=== PATIENT | male | born 1965 | race Caucasian/White ===

== ENCOUNTER 2017-03-20 08:35 | Inpatient (IN) ==
[~2017-03-20 08:35] MED LIST: STELARA PO SCH
--- NOTE | 2017-03-20 08:47 | Emergency Department Report ---
General Adult HPI - General Stated complaint: anxiety,over or under hydrated,chrones disease Time Seen by Provider: 03/20/17 08:47 Source: patient, family Mode of arrival: ambulatory Limitations: no limitations - History of Present Illness HPI narrative: Patient is a 51-year-old male history of Crohn's disease, history of hyponatremia history of anxiety. Patient presents the ER for evaluation of fluid status, anxiety. Patient yesterday went to an outside BBQ drank a few beers, felt weird so he went home and drank a large amount of water, return to the [facility] and drink a few more beers. Patient unable to sleep last night did attempt his home anxiety medications as well as 5 mg Ambien 2. Patient still unable to sleep, has been agitated and anxious all night feeling poorly so patient decided present today to the ER for evaluation. Patient with no complaints of pain, just restlessness. - Related Data Home Medications Medication Instructions Recorded Confirmed Zolpidem Tartrate 5 - 10 mg PO HS #0 09/24/15 03/20/17 ALPRAZolam [Alprazolam] 0.25 mg PO QIDPRN PRN #0 10/04/15 03/20/17 Calcium Carbonate [Calcium] 500 mg PO DAILY #0 04/22/16 03/20/17 Potassium Chloride 10 meq PO DAILY #0 04/22/16 03/20/17 Cholecalciferol [Vitamin D-3] 2 tab PO DAILY 03/20/17 03/20/17 Ferrous Sulfate [Iron] 325 mg PO DAILY 03/20/17 03/20/17 Magnesium Oxide [Magnesium] 500 mg PO DAILY 03/20/17 03/20/17 Ustekinumab [Stelara] 90 mg SQ Q72D 03/20/17 03/20/17 Allergies Allergy/AdvReac Type Severity Reaction Status Date / Time ondansetron Allergy Severe Verified 03/20/17 09:26 REPORTS ZOFRAN WAS BEING ADMINISTERED AND HE SEIZED amoxicillin trihydrate Allergy Severe DIFFICULTY Uncoded 03/20/17 08:45 BREATHING potassium clavulanate Allergy Severe DIFFICULTY Uncoded 03/20/17 08:45 BREATHING Review of Systems Constitutional: Denies: fever, chills, weakness ENT: Denies: ear pain, throat pain Cardiovascular: Denies: chest pain, palpitations Respiratory: Denies: cough, dyspnea Gastrointestinal: Denies: abdominal pain, nausea, vomiting Genitourinary: Denies: urgency, dysuria, frequency Neurological: Denies: headache, weakness, numbness, paresthesias Psychiatric: Reports: anxiety. Denies: depression, suicidal thoughts Endocrine: Denies: fatigue Hematological/Lymphatic: Denies: easy bleeding PFSH Patient Stated Medical History Seizures Yes Hypertension Yes Other GI Yes: CROHNS Depression Yes Surgical History: Colostomy with hemicolectomy - Social History Smoking status: Never smoker Substance use type: does not use Alcohol intake frequency: 0-2 drinks per day Physical Exam - Limitations Limitations: no limitations - Eye Eye exam: Present: PERRL, EOMI - ENT ENT exam: Present: mucous membranes moist - Chest Chest inspection: Present: symmetric chest wall rise. Absent: tenderness - Respiratory Respiratory exam: Present: normal lung sounds bilaterally. Absent: respiratory distress, wheezes - Cardiovascular Cardiovascular exam: Present: regular rate, normal rhythm, normal heart sounds - Abdominal Exam Abdominal exam: Present: soft, other (colostomy in left lower quadrant, no surrounding tenderness). Absent: distention, tenderness - Extremities Exam Extremities exam: Present: full ROM, normal capillary refill - Back Exam Back exam: Present: full ROM - Skin Skin exam: Present: warm - Neurological Exam Neurological exam: Present: alert, oriented X3 Course Vital Signs Temperature 98.3 F 03/20/17 08:37 Pulse Rate 91 03/20/17 08:37 Respiratory Rate 20 03/20/17 08:37 Blood Pressure 170/103 H 03/20/17 08:37 Pulse Oximetry 99 03/20/17 08:37 Temperature 98.3 F 03/20/17 08:37 Pulse Rate 80 03/20/17 09:40 Respiratory Rate 20 03/20/17 08:37 Blood Pressure 180/98 H 03/20/17 09:40 Pulse Oximetry 99 03/20/17 09:40 Medical Decision Making - [facility] Narrative Medical decision making narrative: Hyponatremia, hypokalemia, anxiety, alcohol intoxication, dehydration, acute kidney injury Patient hyponatremic sodium 119 potassium 3.1. Discussed case with hospitalist service they will admit him inpatient status - Lab Data Result diagrams: 03/20/17 08:58 03/20/17 08:58 Lab Results 03/20/17 03/20/17 Range/Units 08:58 08:58 WBC 15.0 H (4.5-11.0) T/MM3 RBC 4.24 L (4.50-5.90) M/MM3 Hgb 12.7 L (13.5-17.5) GM/DL Hct 35.7 L (41-53) % MCV 84.2 (80-100) UM3 MCH 30.0 (26-34) UUG MCHC 35.6 (31-37) GM/DL RDW Std Deviation 36.4 L (36.9-50.2) FL Plt Count 323 (130-400) T/MM3 MPV 8.2 L (9.4-12.4) UM3 Immature Gran % (Auto) 0.6 H (0.0-0.5) % Neut % (Auto) 79.4 H (33-66) % Lymph % (Auto) 10.5 L (23-45) % [place] % (Auto) 8.6 (0-9.0) % Eos % (Auto) 0.6 (0-4) % Baso % (Auto) 0.3 (0-2) % Neut # 11.9 H (1.8-7.7) T/MM3 Lymph # 1.6 (1-4.8) T/MM3 [place] # 1.3 H (0-0.8) T/MM3 Eos # 0.1 (0-0.5) T/MM3 Baso # 0.1 (0-0.2) T/MM3 Abs Immat Gran (auto) 0.09 H (0.00-0.03) T/MM3 Turbidity < 20 (0-20) Sodium 119 L* (134-144) MEQ/L Potassium 3.1 L (3.6-5) MEQ/L Chloride 81 L (98-107) MEQ/L Carbon Dioxide 24 (22-30) MEQ/L Anion Gap 14 (5-15) MEQ/L BUN 12.0 (9-20) MG/DL Creatinine 0.8 (0.8-1.5) MG/DL GFR Calculation 101 BUN/Creatinine Ratio 15 (6-26) RATIO Glucose 98 (75-110) MG/DL Calculated Osmolality 230 L (261-280) MOSM/KG Calcium 9.4 (8.4-10.2) MG/DL Total Bilirubin 0.90 (0.20-1.30) MG/DL Icterus Index < 2 (0-7) AST 48 (17-59) U/L ALT 48 (21-72) U/L Alkaline Phosphatase 89 (38-126) U/L Total Protein 6.7 (6.3-8.2) G/DL Albumin 4.1 (3.5-5.0) G/DL Globulin 2.6 (2.4-3.6) G/DL Albumin/Globulin Ratio 1.6 (1.1-2.2) RATIO Lipase 50 (23-300) U/L Specimen Hemolysis 30 H (0-25) Alcohol, Quantitative <10 (<10) MG/DL Disposition Clinical Impression: Hyponatremia with decreased serum osmolality Disposition: 02 To [facility] Acute Care Condition: Stable Prescriptions: No Action Calcium Carbonate [Calcium] 500 mg PO DAILY #0 Potassium Chloride 10 meq PO DAILY #0 Ferrous Sulfate [Iron] 325 mg PO DAILY Ustekinumab [Stelara] 90 mg SQ Q72D Zolpidem Tartrate 5 - 10 mg PO HS #0 ALPRAZolam [Alprazolam] 0.25 mg PO QIDPRN PRN #0 PRN Reason: ANXIETY Magnesium Oxide [Magnesium] 500 mg PO DAILY Cholecalciferol [Vitamin D-3] 2 tab PO DAILY Referrals: Han Knight MD [Family Provider] - Time of Disposition: 09:34 - Seen By: physician
[2017-03-20] MEDS ORDERED: SALINE FLUSH 10ml SYRINGE IVF PRN (08:51)
[2017-03-20] MEDS ORDERED: NS 1,000 ML IV ONE (08:52)
[2017-03-20] MEDS ORDERED: NS 1,000 ML IV SCH (10:00)
[2017-03-20] MEDS ORDERED: ALPRAZolam 0.25 MG TABLET PO PRN (10:14)
[2017-03-20] MEDS ORDERED: ACETAMINOPHEN 325 MG TABLET PO PRN (10:15)
[2017-03-20] MEDS ORDERED: ZOLPIDEM 10 MG TABLET PO PRN (10:15)
[2017-03-20] MEDS ORDERED: PROMETHAZINE 25 MG INJECTION IVP PRN (10:16)
--- NOTE | 2017-03-20 12:47 | History & Physical Report ---
<Yi Suarez - Last Filed: 03/20/17 13:32> History of Present Illness Date: 03/20/17 Chief complaint: hyponatremia, hypokalemia, anxiety HPI: Han Guerra is a 51 year old male who presented to [facility] emergency room on for evaluation of increased anxiety and restlessness. He has a known history of Crohns disease with colostomy following a hemicolectomy in 2006. He reports that last night he was at an outdoor BBQ where he admits to drinking about 3-4 beers. Around 7pm he started to not feel well so he went home and drank "a lot" of water. Around 2200 he returned to the green party and had a "few more beers" before returning home for the evening. He states that after returning home for the evening, he continued to feel very anxious and restless despite taking his home xanax and ambien. This morning, he continued to feel very anxious and restless and then began vomiting x 3. He admits to a previous history of electrolyte abnormalities and states that he is prone to hyponatremia and hypokalemia due to his hemicolectomy. He states that he recently completed a 10 course of levaquin for a "bad cold" but otherwise denies any fevers, chills, chest pain, shortness of breath, abdominal pain, diarrhea, constipation, dysuria, hematuria, dizziness or syncope. He presented to the ED for further evaluation and concern of dehydration. Upon arrival to the ED, vital signs revealed temperature 96.4, heart rate 90, blood pressure elevated at 180/98, respiratory rate 20 and pulse ox at 100% on room air. Labs were obtained and revealed leukocytosis with WBC 15.0, anemia with hemoglobin 12.7, platelets 323. CMP revealed significant hyponatremia with sodium 119, hypokalemia with potassium 3.1, BUN 12, SCr 0.8 and glucose 98. LFT were within normal limits and alcohol level was <10. While in the ED, he received ativan and IV fluids were initiated. Dr. Haider was contacted and Mr. Guerra as admitted into inpatient status for further evaluation, close cardiac monitoring and electrolyte, IV fluid resuscitation. His length of stay is expected to exceed more than 2 over nights. In addition to a history of Crohn' s disease, he has a past history significant for seizures following binge drinking in Nov. 2015 as well as hypertension, anxiety and depression. He follows with [facility], in [place]. He is seen in his room, following his admission, and is resting in bed, eating lunch. He is in no apparent distress and is alert and oriented x3. He does show signs of difficulty concentrating and repeatedly states "what was I saying " and then remembers after a brief period, to continue the conversation. Cardiac exam reveals regular rate and rhythm and lungs are clear to auscultation. Abdomen is soft, nontender with active bowel sounds and colostomy bag noted. No edema noted to lower extremities and SCDS in place bilaterally. 2+ pedal pulses with N/V intact. Review of Systems All systems: reviewed and no additional remarkable complaints except as stated - Constitutional Constitutional: Absent: chills, fatigue, fever(s), headache(s) - EENMT Eyes: Absent: change in vision, loss of vision, photophobia Mouth/Throat: Absent: dry mouth - Cardiovascular Cardiovascular: Present: palpitations. Absent: chest pain, syncope, dyspnea on exertion, edema Vascular: Absent: pedal edema, unilateral swelling - Respiratory Respiratory: Absent: cough, dyspnea, hemoptysis, dyspnea on exertion, wheezing, pain on inspiration - Gastrointestinal Gastrointestinal: Present: vomiting. Absent: abdominal pain, change in bowel habits, coffee ground emesis, constipation, diarrhea, melena, nausea - Genitourinary Genitourinary: Absent: difficulty urinating, dysuria - Integumentary/Breasts Integumentary: Absent: erythema, rash, jaundice - Neurological Neurological: Absent: dizziness, focal weakness, numbness, vertigo, weakness Neurological Comments: difficulty concentrating. - Psychiatric Psychiatric: Present: abnormal sleep pattern, anxiety, difficulty concentrating - Hematologic/Lymphatic Hematologic/Lymphatic: Absent: easy bleeding PFS Medical History Updates: 1. Crohn's disease. 2. Anemia, chronic. 3. Anxiety & Depression. 4. History of seizures. 5. History of electrolyte imbalance - hyponatremia, hypokalemia. 6. Insomnia. 7. Hypertension. 8. Hypercholesterolemia Surgical History: Colostomy with hemicolectomy Family History Updates: Father - alive, age 84, no known conditions. Mother - , age 66, breast cancer. Son - alive, age 13, health. - Social History Smoking status: Never smoker Substance use type: does not use Alcohol intake: current Alcohol intake frequency: a few times a week Last drink: hours (ago) (12) Housing: house Household members: spouse, children Does patient use chewing tobacco?: No Current residence: Apartment/Private Home Social history: GI - Dr. Knight. Medications Home Medications Medication Instructions Recorded Confirmed Type Zolpidem Tartrate 5 - 10 mg PO HS #0 09/24/15 03/20/17 History ALPRAZolam [Alprazolam] 0.25 mg PO QIDPRN PRN #0 10/04/15 03/20/17 History Calcium Carbonate [Calcium] 500 mg PO DAILY #0 04/22/16 03/20/17 History Potassium Chloride 10 meq PO DAILY #0 04/22/16 03/20/17 History Cholecalciferol [Vitamin D-3] 2 tab PO DAILY 03/20/17 03/20/17 History Ferrous Sulfate [Iron] 325 mg PO DAILY 03/20/17 03/20/17 History Magnesium Oxide [Magnesium] 500 mg PO DAILY 03/20/17 03/20/17 History Ustekinumab [Stelara] 90 mg SQ Q72D 03/20/17 03/20/17 History Allergies Allergy/AdvReac Type Severity Reaction Status Date / Time ondansetron Allergy Severe Verified 03/20/17 09:26 REPORTS ZOFRAN WAS BEING ADMINISTERED AND HE SEIZED amoxicillin trihydrate Allergy Severe DIFFICULTY Uncoded 03/20/17 08:45 BREATHING potassium clavulanate Allergy Severe DIFFICULTY Uncoded 03/20/17 08:45 BREATHING Exam Vital Signs: Temp Pulse Resp BP Pulse Ox 96.4 F L 74 16 158/94 H 97 03/20/17 10:08 03/20/17 10:08 03/20/17 10:08 03/20/17 10:08 03/20/17 10:08 Telemetry Rhythm: Sinus Rhythm Height: 5 ft 9.5 in Weight: 180 lb 12.465 oz Body Mass Index: 26.3 - Constitutional Present: no acute distress, well nourished, well developed, cooperative Comments: anxious, restless - Routine HEENT Exam Head: Present: normocephalic, atraumatic Eye: Absent: scleral injection ENT: Present: mucous membranes moist - Routine Neck Exam Present: supple, full ROM, trachea midline. Absent: tenderness - Routine Chest/Breast/Axilla Exam Chest wall: Absent: tenderness - Routine Respiratory Exam Present: CTA bilaterally. Absent: accessory muscle use, respiratory distress, rhonchi, stridor, wheezes, crackles - Routine Cardiovascular Exam Present: RRR, S1, S2 - Routine Abdominal Exam Present: soft, normoactive bowel sounds, non tender. Absent: rebound, guarding Comments: colostomy bag noted. - Routine Extremities Exam Present: no edema, non tender, full ROM, pulses intact, normal capillary refill. Absent: calf tenderness - Routine Back/Spine/Pelvis Exam Back/Spine: Present: full ROM - Routine Skin Exam Present: intact, dry, warm. Absent: rash - Routine Neurological Exam Present: alert, oriented X3, moving all extremities, hearing grossly intact, normal speech - Routine Psychiatric Exam Present: cooperative, anxious Comments: difficulty concentrating Results - Labs CBC & Chem 7: 03/20/17 08:58 03/20/17 13:05 Labs: leukocytosis - WBC 15.0. anemia - Hgb 12.7. hyponatremia with hypoosmolality - soidium 119 and osmolality 230. hypokalemia - potassium 3.1. Assessment and Plan (1) SIRS (systemic inflammatory response syndrome) Current visit: Yes Status: Acute 03/20/17 13:12 present on admission as indicated by: leukocytosis (WBC 15.0), tachycardia (HR 90) and difficulty concentrating. (2) Hyponatremia with decreased serum osmolality Current visit: Yes Status: Acute 03/20/17 13:16 present on admission - sodium 119 and osmolality 230. (3) Hypokalemia Current visit: Yes Status: Acute 03/20/17 13:14 present on admission - potassium 3.1. (4) Anemia Current visit: Yes Status: Chronic 03/20/17 13:14 present on admission - hemoglobin 12.7. (5) Crohns disease Current visit: Yes Status: Chronic 03/20/17 13:14 s/p colostomy with hemicolectomy in 2006 secondary to bowel perforation during routine colonoscopy. (6) Anxiety and depression Current visit: Yes Status: Chronic (7) Insomnia Current visit: Yes Status: Chronic (8) History of seizures Current visit: Yes Status: Chronic (9) Hypertension Current visit: Yes Status: Chronic (10) Hypercholesteremia Current visit: Yes Status: Chronic DVT Prophylaxis: SCD's Assessment and Plan: .SIRS - Present on admission as indicated by leukocytosis (WBC 15.0), tachycardia (HR 90) and altered mental status as seen by difficulty concentrating. - Most likely secondary to significant electrolyte abnormalities as patient is afebrile. - Patient admits to recent URI and completed 10 course of levaquin on 03/17/17 as well as received steroid shot at the beginning of March. Continue to monitor leukocytosis and may consider CXR if leukocytosis persists despite correct of electrolyte imbalance. -Regular diet as tolerated. -Nausea and vomiting prior to arrival. Phenergan as needed for nausea and vomiting. NOTE allergy to ZOFRAN. .Electrolyte Abnormalities - hyponatremia, hypokalemia, hypoosmolality. -Initiate NS with KCl 20 mEq IV at 100cc/hr for fluid resucucitation and electrolyte correction. As sudden correction of hyponatrmia can lead to encephalitis, will monitor rate closely and recheck BMP at 1300 and 1800. -Continue home KCl 10 mEq po in beginning on 03/21. -Recheck BMP in AM to monitor electrolyte and renal function. -Will check magnesium now. Continue home Magox. Anemia, acute on chronic - Present on admission - hemoglobin 12.7. Anticipate decrease in hemoglobin with rehydration. History of chronic anemia. -Continue home Ferosol. -Recheck CBC in am to monitor blood counts, leukocytosis and anemia. Crohns Disease -Continue home Stelara. Anxiety, Depression and Insomnia -Continue home xanax and ambien. -Ativan 0.5mg IV Q4H PRN anxiety. History of Seizures -history of seizures in 2016 following alcohol binge. No current home seizure medications. In light of recent alcohol use, monitor closely for seizure activity. Hypertension - Patient reports history of hypertension. Blood pressure elevated upon admission at 180/98. No home blood pressure medication listed. Monitor blood presure closely and consider initiation of low dose lisinopril if blood pressure remains elevated. Hypercholesterolemia -Patient reports history of hypercholesterolemia. No cholesterol medications listed for home. Will ask nursing to call pharmacy to ensure accurate med rec is on file. Upon discharge, patient's care will be returned to his PCP and [facility]. Sepsis Assessment - Evaluation Sepsis screening result: No Definite Risk SIRS Criteria: acute mental status change, pulse > or equal to 90 beats/minute, WBC > or equal to 12,000 - Focused Exam Vital Signs Temp Pulse Resp BP Pulse Ox 03/20/17 10:08 96.4 F L 74 16 158/94 H 97 Hospital Course Summary Disclaimer: The visit summary below is not to be considered part of the above Progress Note. Hospital Course: 03/20/17 13:32 .SIRS - Present on admission as indicated by leukocytosis (WBC 15.0), tachycardia (HR 90) and altered mental status as seen by difficulty concentrating. - Most likely secondary to significant electrolyte abnormalities as patient is afebrile. - Patient admits to recent URI and completed 10 course of levaquin on 03/17/17 as well as received steroid shot at the beginning of March. Continue to monitor leukocytosis and may consider CXR if leukocytosis persists despite correct of electrolyte imbalance. -Regular diet as tolerated. -Nausea and vomiting prior to arrival. Phenergan as needed for nausea and vomiting. NOTE allergy to ZOFRAN. .Electrolyte Abnormalities - hyponatremia, hypokalemia, hypoosmolality. -Initiate NS with KCl 20 mEq IV at 100cc/hr for fluid resucucitation and electrolyte correction. As sudden correction of hyponatrmia can lead to encephalitis, will monitor rate closely and recheck BMP at 1300 and 1800. -Continue home KCl 10 mEq po in beginning on 03/21. -Recheck BMP in AM to monitor electrolyte and renal function. -Will check magnesium now. Continue home Magox. Anemia, acute on chronic - Present on admission - hemoglobin 12.7. Anticipate decrease in hemoglobin with rehydration. History of chronic anemia. -Continue home Ferosol. -Recheck CBC in am to monitor blood counts, leukocytosis and anemia. Crohns Disease -Continue home Stelara. Anxiety, Depression and Insomnia -Continue home xanax and ambien. -Ativan 0.5mg IV Q4H PRN anxiety. History of Seizures -history of seizures in 2016 following alcohol binge. No current home seizure medications. In light of recent alcohol use, monitor closely for seizure activity. Hypertension - Patient reports history of hypertension. Blood pressure elevated upon admission at 180/98. No home blood pressure medication listed. Monitor blood presure closely and consider initiation of low dose lisinopril if blood pressure remains elevated. Hypercholesterolemia -Patient reports history of hypercholesterolemia. No cholesterol medications listed for home. Will ask nursing to call pharmacy to ensure accurate med rec is on file. Upon discharge, patient's care will be returned to his PCP and [facility]. <Aaron Haider - Last Filed: 03/20/17 15:26> History of Present Illness Date: 03/20/17 [facility] Patient Stated Medical History Seizures Yes Hypertension Yes Other Cardiology Yes: coded after zofran administration Other GI Yes: CROHNS Depression Yes: colostomy related Exam Vital Signs: Temp Pulse Resp BP Pulse Ox 96.4 F L 74 16 158/94 H 97 03/20/17 10:08 03/20/17 10:08 03/20/17 10:08 03/20/17 10:08 03/20/17 10:08 Height: 1.77 m Weight: 82 kg Results - Labs CBC & Chem 7: 03/20/17 08:58 03/20/17 13:05 Assessment and Plan (1) Hyponatremia with decreased serum osmolality Current visit: Yes Status: Acute (2) Hypokalemia Current visit: Yes Status: Acute (3) SIRS (systemic inflammatory response syndrome) Current visit: Yes Status: Acute (4) Anemia Current visit: Yes Status: Chronic (5) Crohns disease Current visit: Yes Status: Chronic (6) Anxiety and depression Current visit: Yes Status: Chronic (7) Insomnia Current visit: Yes Status: Chronic (8) History of seizures Current visit: Yes Status: Chronic (9) Hypertension Current visit: Yes Status: Chronic (10) Hypercholesteremia Current visit: Yes Status: Chronic Resuscitation Status: Full Code Assessment and Plan: Have independently interviewed and examined pt. Chart reviewed. Case discussed with ED physician and my PA. Care plan developed with my supervision; agree with above. Presents to ED with increasing anxiety. Had been drinking some beers last night , but then drank ALOT of water to keep from getting dehydrated. Started not feeling right (hard to put his finger on it) - some decreased ability to focus and concentrate. Had 1 episode of emesis; not feeling nausea but noted appetite decreased. No swelling to arms or legs. No muscle aches or weakness. Stools output stable. Breathing well. Not feeling chest pressure or palpitations. Does feel tire, but having hard time sleeping. Evaluated in ED. Serum sodium very low. Potassium low. Lungs: clear CV: regular AB: soft nt/nd +BS EXT: no edema MSE: awake alert, converses well. Not agitated. Gen: alert, but appears tired. Plan: Inpatient admission for slow correction of serum sodium. Correct potassium and magnesium. Ativan prn anxiety. SCD for DVT prevention. Monitor lab closely. Sepsis Assessment - Focused Exam Vital Signs Temp Pulse Resp BP Pulse Ox 03/20/17 10:08 96.4 F L 74 16 158/94 H 97 Hospital Course Summary Disclaimer: The visit summary below is not to be considered part of the above Progress Note.
[2017-03-20] MEDS: NS with KCL 20 mEq 1,000 ML IV SCH (13:09)
[2017-03-20] MEDS ORDERED: MAGNESIUM SULFATE 1gm PREMIX 1 GM/100 ML BAG IV ONE (13:26)
[2017-03-20] MEDS: LIDOCAINE 1% 2ml INJ 10 MG, POTASSIUM CHLORIDE INJ 10 MEQ in NS 100 ML IV SCH ×4 (15:35→19:39)
[2017-03-20] MEDS: NS 1,000 ML IV SCH (23:50)
[2017-03-21] MEDS: NS with KCL 20 mEq 1,000 ML IV SCH (01:02)
[2017-03-21] MEDS ORDERED: FERROUS SULFATE 324 MG TABLET PO SCH (09:00)
[2017-03-21] MEDS ORDERED: MAGNESIUM OXIDE 400 MG TABLET PO SCH (09:00)
[2017-03-21] MEDS ORDERED: CALCIUM CARBONATE 500 MG TABLET PO SCH (09:00)
[2017-03-21] MEDS: NS 1,000 ML IV SCH (13:03)
--- NOTE | 2017-03-21 14:02 | Progress Note ---
Subjective: F/U: Hyponatremia Doing great today. Slept well. No nausea. Eating well. Ambulating without difficulty. Breathing well. Not having any confusion or weakness. Urinating well. Objective Vital signs: Temp Pulse Resp BP Pulse Ox 96.5 F L 67 16 117/69 99 03/21/17 08:00 03/21/17 08:00 03/21/17 08:00 03/21/17 08:00 03/21/17 08:00 Weight: 76.1 kg - Constitutional Present: no acute distress, well nourished, well developed, cooperative - Routine HEENT Exam Head: Present: normocephalic, atraumatic Eye: Present: EOMI, PERRL ENT: Present: mucous membranes moist - Routine Respiratory Exam Present: CTA bilaterally. Absent: respiratory distress, rhonchi, wheezes - Routine Cardiovascular Exam Present: RRR - Routine Abdominal Exam Present: soft, normoactive bowel sounds, non distended, non tender - Routine Extremities Exam Present: no edema, pulses intact. Absent: cyanosis, clubbing - Routine Musculoskeletal Exam Musculoskeletal: normal strength, no joint swelling - Routine Skin Exam Present: intact, warm - Routine Neurological Exam Present: alert, oriented X3, CN II-XII intact. Absent: motor deficit - Routine Psychiatric Exam Present: normal affect, cooperative, good insight, good judgment. Absent: anxious, agitated Results - Labs CBC & Chem 7: 03/21/17 04:41 03/21/17 04:41 Assessment and Plan (1) Hyponatremia with decreased serum osmolality Current visit: Yes Status: Resolved 03/20/17 13:16 present on admission - sodium 119 and osmolality 230. (2) Hypokalemia Current visit: Yes Status: Resolved 03/20/17 13:14 present on admission - potassium 3.1. (3) SIRS (systemic inflammatory response syndrome) Current visit: Yes Status: Resolved 03/20/17 13:12 present on admission as indicated by: leukocytosis (WBC 15.0), tachycardia (HR 90) and difficulty concentrating. (4) Anemia Current visit: Yes Status: Chronic 03/20/17 13:14 present on admission - hemoglobin 12.7. (5) Crohns disease Current visit: Yes Status: Chronic 03/20/17 13:14 s/p colostomy with hemicolectomy in 2006 secondary to bowel perforation during routine colonoscopy. (6) Anxiety and depression Current visit: Yes Status: Chronic (7) Insomnia Current visit: Yes Status: Chronic (8) History of seizures Current visit: Yes Status: Chronic (9) Hypertension Current visit: Yes Status: Chronic (10) Hypercholesteremia Current visit: Yes Status: Chronic DVT Prophylaxis: SCD's Assessment and Plan: Serum sodium and potassium have normalized. Pt mentation at baseline. Neurologically intact. Eating and drinking well. Will d/c to home. F/U with PCP in 1 week. See orders for details. Sepsis Assessment - Evaluation Sepsis screening result: No Definite Risk - Focused Exam Vital Signs Temp Pulse Resp BP Pulse Ox 03/21/17 08:00 96.5 F L 67 16 117/69 99 Respiratory exam: Present: CTA bilaterally. Absent: accessory muscle use, respiratory distress, rhonchi, stridor, wheezes, crackles Cardiovascular exam: Present: RRR, S1, S2 Capillary refill: < 2-3 Seconds Hospital Course Summary Disclaimer: The visit summary below is not to be considered part of the above Progress Note. Hospital Course: 03/20/17 13:32 .SIRS - Present on admission as indicated by leukocytosis (WBC 15.0), tachycardia (HR 90) and altered mental status as seen by difficulty concentrating. - Most likely secondary to significant electrolyte abnormalities as patient is afebrile. - Patient admits to recent URI and completed 10 course of levaquin on 03/17/17 as well as received steroid shot at the beginning of March. Continue to monitor leukocytosis and may consider CXR if leukocytosis persists despite correct of electrolyte imbalance. -Regular diet as tolerated. -Nausea and vomiting prior to arrival. Phenergan as needed for nausea and vomiting. NOTE allergy to ZOFRAN. .Electrolyte Abnormalities - hyponatremia, hypokalemia, hypoosmolality. -Initiate NS with KCl 20 mEq IV at 100cc/hr for fluid resucucitation and electrolyte correction. As sudden correction of hyponatrmia can lead to encephalitis, will monitor rate closely and recheck BMP at 1300 and 1800. -Continue home KCl 10 mEq po in beginning on 03/21. -Recheck BMP in AM to monitor electrolyte and renal function. -Will check magnesium now. Continue home Magox. Anemia, acute on chronic - Present on admission - hemoglobin 12.7. Anticipate decrease in hemoglobin with rehydration. History of chronic anemia. -Continue home Ferosol. -Recheck CBC in am to monitor blood counts, leukocytosis and anemia. Crohns Disease -Continue home Stelara. Anxiety, Depression and Insomnia -Continue home xanax and ambien. -Ativan 0.5mg IV Q4H PRN anxiety. History of Seizures -history of seizures in 2016 following alcohol binge. No current home seizure medications. In light of recent alcohol use, monitor closely for seizure activity. Hypertension - Patient reports history of hypertension. Blood pressure elevated upon admission at 180/98. No home blood pressure medication listed. Monitor blood presure closely and consider initiation of low dose lisinopril if blood pressure remains elevated. Hypercholesterolemia -Patient reports history of hypercholesterolemia. No cholesterol medications listed for home. Will ask nursing to call pharmacy to ensure accurate med rec is on file. Upon discharge, patient's care will be returned to his PCP and [facility].
--- NOTE | 2017-03-21 14:15 | Discharge Summary ---
Discharge Information Date of admission: 03/20/17 10:01 Anticipated date of discharge: 03/21/17 Attending Physician: Aaron Haider MD Primary care physician: Han Knight MD - Discharge Diagnosis (1) Hyponatremia with decreased serum osmolality Status: Resolved (2) Hypokalemia Status: Resolved (3) SIRS (systemic inflammatory response syndrome) Status: Resolved (4) Anemia Qualifiers: Anemia type: unspecified type Qualified Code(s): D64.9 - Anemia, unspecified Status: Chronic (5) Crohns disease Qualifiers: Gastrointestinal tract location: unspecified location Digestive disease complication type: without complication Qualified Code(s): K50.90 - Crohn's disease, unspecified, without complications Status: Chronic (6) Anxiety and depression Status: Chronic (7) Insomnia Qualifiers: Insomnia type: primary Qualified Code(s): F51.01 - Primary insomnia Status: Chronic (8) History of seizures Status: Chronic (9) Hypertension Qualifiers: Hypertension type: essential hypertension Qualified Code(s): I10 - Essential (primary) hypertension Status: Chronic (10) Hypercholesteremia Status: Chronic - Laboratory Labs: 03/21/17 04:41 03/21/17 04:41 History of Present Illness HPI: Han Guerra is a 51 year old male who presented to [facility] emergency room on for evaluation of increased anxiety and restlessness. He has a known history of Crohns disease with colostomy following a hemicolectomy in 2006. He reports that last night he was at an outdoor BBQ where he admits to drinking about 3-4 beers. Around 7pm he started to not feel well so he went home and drank "a lot" of water. Around 2200 he returned to the libertarian and had a "few more beers" before returning home for the evening. He states that after returning home for the evening, he continued to feel very anxious and restless despite taking his home xanax and ambien. This morning, he continued to feel very anxious and restless and then began vomiting x 3. He admits to a previous history of electrolyte abnormalities and states that he is prone to hyponatremia and hypokalemia due to his hemicolectomy. He states that he recently completed a 10 course of levaquin for a "bad cold" but otherwise denies any fevers, chills, chest pain, shortness of breath, abdominal pain, diarrhea, constipation, dysuria, hematuria, dizziness or syncope. He presented to the ED for further evaluation and concern of dehydration. Upon arrival to the ED, vital signs revealed temperature 96.4, heart rate 90, blood pressure elevated at 180/98, respiratory rate 20 and pulse ox at 100% on room air. Labs were obtained and revealed leukocytosis with WBC 15.0, anemia with hemoglobin 12.7, platelets 323. CMP revealed significant hyponatremia with sodium 119, hypokalemia with potassium 3.1, BUN 12, SCr 0.8 and glucose 98. LFT were within normal limits and alcohol level was <10. While in the ED, he received ativan and IV fluids were initiated. Dr. Haider was contacted and Mr. Guerra as admitted into inpatient status for further evaluation, close cardiac monitoring and electrolyte, IV fluid resuscitation. His length of stay is expected to exceed more than 2 over nights. In addition to a history of Crohn' s disease, he has a past history significant for seizures following binge drinking in 2015 as well as hypertension, anxiety and depression. He follows with HELEN Rosenthal, in [place]. He is seen in his room, following his admission, and is resting in bed, eating lunch. He is in no apparent distress and is alert and oriented x3. He does show signs of difficulty concentrating and repeatedly states "what was I saying " and then remembers after a brief period, to continue the conversation. Cardiac exam reveals regular rate and rhythm and lungs are clear to auscultation. Abdomen is soft, nontender with active bowel sounds and colostomy bag noted. No edema noted to lower extremities and SCDS in place bilaterally. 2+ pedal pulses with N/V intact. For complete details of the H&P, refer to that document. Hospital Course Hospital course: 03/20/17 13:32 .SIRS - Present on admission as indicated by leukocytosis (WBC 15.0), tachycardia (HR 90) and altered mental status as seen by difficulty concentrating. - Most likely secondary to significant electrolyte abnormalities as patient is afebrile. - Patient admits to recent URI and completed 10 course of levaquin on 03/17/17 as well as received steroid shot at the beginning of March. Continue to monitor leukocytosis and may consider CXR if leukocytosis persists despite correct of electrolyte imbalance. -Regular diet as tolerated. -Nausea and vomiting prior to arrival. Phenergan as needed for nausea and vomiting. NOTE allergy to ZOFRAN. .Electrolyte Abnormalities - hyponatremia, hypokalemia, hypoosmolality. -Initiate NS with KCl 20 mEq IV at 100cc/hr for fluid resucucitation and electrolyte correction. As sudden correction of hyponatrmia can lead to encephalitis, will monitor rate closely and recheck BMP at 1300 and 1800. -Continue home KCl 10 mEq po in beginning on 03/21. -Recheck BMP in AM to monitor electrolyte and renal function. -Will check magnesium now. Continue home Magox. Anemia, acute on chronic - Present on admission - hemoglobin 12.7. Anticipate decrease in hemoglobin with rehydration. History of chronic anemia. -Continue home Ferosol. -Recheck CBC in am to monitor blood counts, leukocytosis and anemia. Crohns Disease -Continue home Stelara. Anxiety, Depression and Insomnia -Continue home xanax and ambien. -Ativan 0.5mg IV Q4H PRN anxiety. History of Seizures -history of seizures in 2016 following alcohol binge. No current home seizure medications. In light of recent alcohol use, monitor closely for seizure activity. Hypertension - Patient reports history of hypertension. Blood pressure elevated upon admission at 180/98. No home blood pressure medication listed. Monitor blood presure closely and consider initiation of low dose lisinopril if blood pressure remains elevated. Hypercholesterolemia -Patient reports history of hypercholesterolemia. No cholesterol medications listed for home. Will ask nursing to call pharmacy to ensure accurate med rec is on file. Upon discharge, patient's care will be returned to his PCP and HEL[facility] Rosenthal. 03/21 Serum sodium and potassium have normalized. Pt mentation at baseline. Neurologically intact. Eating and drinking well. Will d/c to home. F/U with PCP in 1 week. See orders for details. Narrative disclaimer - above narrative is a brief summary of patient's hospitalization; for complete details of the hospital course, refer to the medical records. DVT Prophylaxis: SCD's Discharge Plan - Med Rec/Dispo Referrals/Follow Up: Han Knight MD [Family Provider] - 2 Days (Has scheduled apt. ) Rai Blount MD [Physician] - Prescriptions: Continue Calcium Carbonate [Calcium] 500 mg PO DAILY #0 Potassium Chloride 10 meq PO DAILY #0 Ferrous Sulfate [Iron] 325 mg PO DAILY Ustekinumab [Stelara] 90 mg SQ Q72D Zolpidem Tartrate 5 - 10 mg PO HS #0 ALPRAZolam [Alprazolam] 0.25 mg PO QIDPRN PRN #0 PRN Reason: ANXIETY Magnesium Oxide [Magnesium] 500 mg PO DAILY Cholecalciferol [Vitamin D-3] 2 tab PO DAILY - Disposition 01 Discharged Home, Self-Care
== END 2017-03-21 14:32 | disposition home or self-care (01) | DRG 641 ==
LOC: ED 08:35 → MED 09:32
PROVIDERS: ADMIT Hospitalist; ATTEND Hospitalist

== ENCOUNTER 2017-09-19 19:44 | Inpatient (IN) ==
--- NOTE | 2017-09-19 20:03 | Emergency Department Report ---
General Adult HPI - General Chief complaint: Anxiety Stated complaint: issues with Chrones disease Time Seen by Provider: 09/19/17 20:03 Source: patient Mode of arrival: ambulatory Limitations: no limitations - History of Present Illness HPI narrative: 52 YO M presents to ED with complaint of anxiety and knows his electrolytes are off. Patient states he has Crohn's disease and drank too much alcohol last night. States he has been having marital problems. Says he knows better not to drink but did anyway. Also admits to eating some "candy" that a friend gave him that is dying from cancer. Thinks that the "candy had something in it". Patient says he has taken 2 Xanax which has not helped his anxiety. Patient denies fever, chills, nausea, vomiting, abdominal pain. - Related Data Home Medications Medication Instructions Recorded Confirmed Magnesium Oxide [Magnesium] 500 mg PO DAILY 03/20/17 09/19/17 Ustekinumab [Stelara] 90 mg SQ Q72D 03/20/17 09/19/17 ALPRAZolam [Xanax] 0.5 mg PO TID PRN 09/19/17 09/19/17 Atorvastatin Calcium 20 mg PO HS 09/19/17 09/19/17 Potassium Chloride 10 meq PO DAILY 09/19/17 09/19/17 Zolpidem Tartrate 5 - 10 mg PO HS 09/19/17 09/19/17 predniSONE [Prednisone] 10 mg PO DAILY 09/19/17 09/19/17 Previous Rx's Medication Instructions Recorded Sodium Chloride Tab [Salt Tablet] 1 gm PO TID #90 tab 09/22/17 Allergies Allergy/AdvReac Type Severity Reaction Status Date / Time amoxicillin [From Augmentin] Allergy Severe Difficulty Verified 09/19/17 20:06 Breathing clavulanic acid Allergy Severe Difficulty Verified 09/19/17 20:06 [From Augmentin] Breathing ondansetron Allergy Severe Verified 09/19/17 20:04 REPORTS ZOFRAN WAS BEING ADMINISTERED AND HE SEIZED Review of Systems All systems: reviewed and negative except as stated Constitutional: Reports: as per HPI, other (electrolytes off) Psychiatric: Reports: as per HPI, anxiety PFSH Patient Stated Medical History Seizures Yes Hypertension Yes Other Cardiology Yes: coded after zofran administration Other GI Yes: CROHNS Depression Yes: colostomy related Medical History Updates: 1. Crohn's disease. 2. Anemia, chronic. 3. Anxiety & Depression. 4. History of seizures. 5. History of electrolyte imbalance - hyponatremia, hypokalemia. 6. Insomnia. 7. Hypertension. 8. Hypercholesterolemia Surgical History: Colostomy with hemicolectomy Family History: noncontributory - Social History Smoking status: Never smoker Current occupational status: employed Does patient use chewing tobacco?: No Current residence: Apartment/Private Home Physical Exam - Limitations Limitations: no limitations - General General appearance: alert - Normal Exams: Head:: Normocephalic without trauma Eyes:: No scleral icterus, irritation ENMT:: No facial trauma, nasal exudates Chest/Respirations:: Clear all mckeon, with good airflow, and symmetry bilaterally Cardiovascular:: Regular rate and rhythm Abdomen:: Bowel sounds positive, soft, non-tender, non-distended Musculoskeletal:: good range of motion, all extremities Neurological:: Patient is alert, and oriented Psychiatric:: Patient exhibits, appropriate attention - Neck Neck exam: Present: trachea midline - Psychiatric Psychiatric exam: Present: anxious Course - Consultations Consultation #1: I discussed patient's HPI, PMH, labs, VS, exam findings and treatment in the ED with Dr. Duncan. Dr. Duncan will admit inpatient. Vital Signs Temperature 98.3 F 09/19/17 19:48 Pulse Rate 93 09/19/17 19:48 Respiratory Rate 22 09/19/17 19:48 Blood Pressure 176/105 H 09/19/17 19:48 Pulse Oximetry 100 09/19/17 19:48 Temperature 98.4 F 09/22/17 08:00 Pulse Rate 87 09/22/17 08:00 Respiratory Rate 18 09/22/17 08:00 Blood Pressure 102/80 09/22/17 08:00 Pulse Oximetry 97 09/22/17 08:00 Medical Decision Making - [facility] Narrative Medical decision making narrative: Patient admitted in patient due to hyponatremia. Patient is feeling better after fluids and Ativan. - Differential Diagnosis Anxiety, hyponatremia, hypokalemia - Medical Records Medical records reviewed: Yes: I reviewed the patient's medical records. - Lab Data Result diagrams: 09/20/17 04:05 09/22/17 04:15 Lab Results 12/17/17 12/17/17 12/17/17 Range/Units 20:33 20:33 20:33 WBC 9.8 (4.5-11.0) T/MM3 RBC 4.03 L (4.50-5.90) M/MM3 Hgb 10.9 L (13.5-17.5) GM/DL Hct 31.5 L (41-53) % MCV 78.2 L (80-100) UM3 MCH 27.0 (26-34) UUG MCHC 34.6 (31-37) GM/DL RDW Std Deviation 36.7 L (36.9-50.2) FL Plt Count 251 (130-400) T/MM3 MPV 8.3 L (9.4-12.4) UM3 Immature Gran % (Auto) 0.4 (0.0-0.5) % Neut % (Auto) 77.6 H (33-66) % Lymph % (Auto) 9.6 L (23-45) % Wallace % (Auto) 11.9 H (0-9.0) % Eos % (Auto) 0.2 (0-4) % Baso % (Auto) 0.3 (0-2) % Neut # (Auto) 7.6 (1.8-7.7) T/MM3 Lymph # (Auto) 0.9 L (1-4.8) T/MM3 Wallace # (Auto) 1.2 H (0-0.8) T/MM3 Eos # (Auto) 0.0 (0-0.5) T/MM3 Baso # (Auto) 0.0 (0-0.2) T/MM3 Abs Immat Gran (auto) 0.04 H (0.00-0.03) T/MM3 Turbidity < 20 (0-20) Sodium 113 L* (134-144) MEQ/L Potassium 3.3 L (3.6-5) MEQ/L Chloride 78 L (98-107) MEQ/L Carbon Dioxide 23 (22-30) MEQ/L Anion Gap 12 (5-15) MEQ/L BUN 9.0 (9-20) MG/DL Creatinine 0.8 (0.8-1.5) MG/DL GFR Calculation 101 BUN/Creatinine Ratio 11 (6-26) RATIO Glucose 106 (75-110) MG/DL Calculated Osmolality 218 L (261-280) MOSM/KG Calcium 8.2 L (8.4-10.2) MG/DL Magnesium 1.3 L (1.6-2.3) MG/DL Total Bilirubin 0.20 (0.20-1.30) MG/DL Icterus Index < 2 (0-7) AST 99 H (17-59) U/L ALT 70 (21-72) U/L Alkaline Phosphatase 139 H (38-126) U/L Total Protein 7.0 (6.3-8.2) G/DL Albumin 3.8 (3.5-5.0) G/DL Globulin 3.2 (2.4-3.6) G/DL Albumin/Globulin Ratio 1.2 (1.1-2.2) RATIO Specimen Hemolysis < 15 (0-25) Ur Collection Type Urine Color (YELLOW) Urine Clarity Urine pH (5.0-8.0) Ur Specific Lincoln (1.015-1.025) Urine Protein (NEGATIVE) Urine Glucose (UA) (NEGATIVE) Urine Ketones (NEGATIVE) Urine Occult Blood (NEGATIVE) Urine Nitrate (NEGATIVE) Urine Bilirubin (NEGATIVE) Urine Urobilinogen (NORMAL) EU/DL Ur Leukocyte Esterase (NEGATIVE) Urine RBC (0-3) /HPF Urine WBC (0-5) /HPF Urine Bacteria (NEGATIVE) Ur Culture Indicated? Urine Opiates Screen ng/mL Ur Oxycodone Screen ng/mL Urine Methadone Screen ng/mL Ur Propoxyphene Screen ng/mL Ur Barbiturates Screen ng/mL U Tricyclic Antidepress ng/mL Ur Phencyclidine Scrn ng/mL Ur Amphetamines Screen ng/mL U Methamphetamines Scrn ng/mL U Benzodiazepines Scrn ng/mL Urine Cocaine Screen ng/mL U Cannabinoids Screen ng/mL Ur Drug Screen Confirm Ur Drug Screen Info Alcohol, Quantitative 88 (<10) MG/DL 09/19/17 09/19/17 09/19/17 Range/Units 21:19 21:19 21:19 WBC (4.5-11.0) T/MM3 RBC (4.50-5.90) M/MM3 Hgb (13.5-17.5) GM/DL Hct (41-53) % MCV (80-100) UM3 MCH (26-34) UUG MCHC (31-37) GM/DL RDW Std Deviation (36.9-50.2) FL Plt Count (130-400) T/MM3 MPV (9.4-12.4) UM3 Immature Gran % (Auto) (0.0-0.5) % Neut % (Auto) (33-66) % Lymph % (Auto) (23-45) % Wallace % (Auto) (0-9.0) % Eos % (Auto) (0-4) % Baso % (Auto) (0-2) % Neut # (Auto) (1.8-7.7) T/MM3 Lymph # (Auto) (1-4.8) T/MM3 Wallace # (Auto) (0-0.8) T/MM3 Eos # (Auto) (0-0.5) T/MM3 Baso # (Auto) (0-0.2) T/MM3 Abs Immat Gran (auto) (0.00-0.03) T/MM3 Turbidity (0-20) Sodium (134-144) MEQ/L Potassium (3.6-5) MEQ/L Chloride (98-107) MEQ/L Carbon Dioxide (22-30) MEQ/L Anion Gap (5-15) MEQ/L BUN (9-20) MG/DL Creatinine (0.8-1.5) MG/DL GFR Calculation BUN/Creatinine Ratio (6-26) RATIO Glucose (75-110) MG/DL Calculated Osmolality (261-280) MOSM/KG Calcium (8.4-10.2) MG/DL Magnesium (1.6-2.3) MG/DL Total Bilirubin (0.20-1.30) MG/DL Icterus Index (0-7) AST (17-59) U/L ALT (21-72) U/L Alkaline Phosphatase (38-126) U/L Total Protein (6.3-8.2) G/DL Albumin (3.5-5.0) G/DL Globulin (2.4-3.6) G/DL Albumin/Globulin Ratio (1.1-2.2) RATIO Specimen Hemolysis (0-25) Ur Collection Type Urine, clean catch Urine Color Yellow (YELLOW) Urine Clarity Clear Urine pH 6.5 (5.0-8.0) Ur Specific Lincoln 1.010 L (1.015-1.025) Urine Protein Negative (NEGATIVE) Urine Glucose (UA) Negative (NEGATIVE) Urine Ketones Negative (NEGATIVE) Urine Occult Blood 1+ A (NEGATIVE) Urine Nitrate Negative (NEGATIVE) Urine Bilirubin Negative (NEGATIVE) Urine Urobilinogen 0.2 (NORMAL) EU/DL Ur Leukocyte Esterase Negative (NEGATIVE) Urine RBC 0-1 (0-3) /HPF Urine WBC 0-1 (0-5) /HPF Urine Bacteria None seen (NEGATIVE) Ur Culture Indicated? Cult not indicated Urine Opiates Screen Negative ng/mL Ur Oxycodone Screen Negative ng/mL Urine Methadone Screen Negative ng/mL Ur Propoxyphene Screen Negative ng/mL Ur Barbiturates Screen Negative ng/mL U Tricyclic Antidepress Negative ng/mL Ur Phencyclidine Scrn Negative ng/mL Ur Amphetamines Screen Negative ng/mL U Methamphetamines Scrn Negative ng/mL U Benzodiazepines Scrn Negative ng/mL Urine Cocaine Screen Negative ng/mL U Cannabinoids Screen Positive ng/mL Ur Drug Screen Confirm Sent out Ur Drug Screen Info Ref lab rpt scanned Alcohol, Quantitative (<10) MG/DL Disposition Clinical Impression: Hyponatremia with decreased serum osmolality, Acute anxiety Disposition: 02 To [facility] Acute Care Condition: Stable - Seen By: midlevel
[2017-09-19] MEDS ORDERED: NS 1,000 ML IV ONE (20:13)
[2017-09-19] MEDS: SALINE FLUSH 10ml SYRINGE IVF PRN ×2 (20:31→22:46)
[2017-09-19] MEDS ORDERED: HYDRALAZINE 20 MG/ML INJECTION IVP PRN (22:41)
[2017-09-19] MEDS ORDERED: ONDANSETRON 4 MG/2 ML INJECTION IVP PRN (22:41)
[2017-09-19] MEDS ORDERED: ALPRAZolam 0.5 MG TABLET PO PRN (22:41)
[2017-09-19] MEDS ORDERED: MORPHINE SULFATE 2mg INJECTION IVP PRN (22:41)
[2017-09-19] MEDS: NS with KCL 20 mEq 1,000 ML IV SCH (22:46)
[2017-09-19 22:58] VITALS: BMI 24.5
[2017-09-19] MEDS ORDERED: FALL RISK - PHARMACY CONSULT XX ONE (23:07)
--- NOTE | 2017-09-19 23:35 | History & Physical Report ---
History of Present Illness Date: 09/19/17 Chief complaint: i am anxious HPI: This is a 52 y/o male who presents to the ED tonight due to increased anxiety. The patient drank a significant amount of alcohol since 5 am today and had sense that his electrolytes were getting out of balance. This has occurred x 4 before. The patient presents to the ED and is discovered to have a serum na of 113. The patient is alert and oriented without sig neuro sequel from this. The patient is very anxious and is given ativan in the ed. The patient has a history of chron's disease and has a diverting colostomy after peritonitis after a complications from a colonoscopy. The patient has had decreased output from the colostomy. The patient has been nauseated with 1 emesis this afternoon , no blood The patient denies suicidal ideation. at bedside reports that they are going through marriage counseling weekly currently. The patient at this time will be admitted for fluid resuscitation and addressing anxiety acutely. The patient reports that he took one of his friends "medications" that is used for anxiety. Not sure the name of the medication. Review of Systems Review of systems: no headache, no change in vision, no sore throat, no neck pain, no cough, heart palipatiations noted, no abdomen pain, slight nausea and emeiss as noted above, decreased ostomy output actually. no focal neuro complaints. again not suicidal. 10 point ROS otherwise neg except for outlined above. PFSH Patient Stated Medical History Peripheral Neuropathy Yes: Peripheral Seizures Yes Hypertension Yes Other Cardiology Yes: coded after Zofran administration Gastroesophageal Reflux Yes Disease Other GI Yes: CROHNS Anemia Yes Sepsis Yes: 2 years ago Depression Yes: colostomy related Substance Use Disorder Yes: States "one time" Marijuana use. Medical History Updates: 1. Crohn's disease. 2. Anemia, chronic. 3. Anxiety & Depression. 4. History of seizures. 5. History of electrolyte imbalance - hyponatremia, hypokalemia. 6. Insomnia. 7. Hypertension. 8. Hypercholesterolemia Surgical History: Colostomy with hemicolectomy - Social History Smoking status: Never smoker Substance use type: does not use Last drink: hours (ago) Housing: house Household members: spouse service: No Current occupational status: employed Does patient use chewing tobacco?: No Current residence: Apartment/Private Home Social history: patient is , going through marriage counseling. self employed with two businesses. Medications Home Medications Medication Instructions Recorded Confirmed Type Magnesium Oxide [Magnesium] 500 mg PO DAILY 03/20/17 09/19/17 History Ustekinumab [Stelara] 90 mg SQ Q72D 03/20/17 09/19/17 History ALPRAZolam [Xanax] 0.5 mg PO TID PRN 09/19/17 09/19/17 History Atorvastatin Calcium [Atorvastatin 20 mg PO HS 09/19/17 09/19/17 History Calcium] Potassium Chloride 10 meq PO DAILY 09/19/17 09/19/17 History Zolpidem Tartrate [Zolpidem 5 - 10 mg PO HS 09/19/17 09/19/17 History Tartrate] predniSONE [Prednisone] 10 mg PO DAILY 09/19/17 09/19/17 History Allergies Allergy/AdvReac Type Severity Reaction Status Date / Time amoxicillin [From Augmentin] Allergy Severe Difficulty Verified 09/19/17 20:06 Breathing clavulanic acid Allergy Severe Difficulty Verified 09/19/17 20:06 [From Augmentin] Breathing ondansetron Allergy Severe Verified 09/19/17 20:04 REPORTS ZOFRAN WAS BEING ADMINISTERED AND HE SEIZED Exam Vital Signs: Temperature 98.5 F 09/19/17 22:51 Pulse Rate 90 09/19/17 22:51 Respiratory Rate 16 09/19/17 22:51 Blood Pressure 149/89 H 09/19/17 22:51 Pulse Oximetry 99 09/19/17 22:51 Telemetry Rhythm: Sinus Rhythm Height/Weight/BMI: Height 1.78 m Weight 77.4 kg Body Mass Index 24.5 - Constitutional Present: moderate distress, well nourished, well developed, obese, disheveled, cooperative - Routine HEENT Exam Head: Present: normocephalic, atraumatic Eye: Present: PERRL, scleral injection ENT: Present: mucous membranes dry - Routine Neck Exam Present: supple, full ROM - Routine Cardiovascular Exam Present: RRR, no murmur - Routine Abdominal Exam Present: soft, normoactive bowel sounds, non distended, non tender - Routine Back/Spine/Pelvis Exam Back/Spine: Present: full ROM - Routine Skin Exam Present: intact - Routine Neurological Exam Present: alert, oriented X3, CN II-XII intact. Absent: motor deficit, altered mental status - Routine Psychiatric Exam Comments: anxious, poor eye contact, not tearful, at bedside, not suicidal Results - Labs CBC & Chem 7: 09/19/17 20:33 09/19/17 20:33 - ABG Interpretation Additional comments: labs reviewed and will be discussed below Assessment and Plan (1) Hyponatremia with decreased serum osmolality Current visit: No Status: Resolved (2) Hypokalemia Current visit: No Status: Resolved (3) SIRS (systemic inflammatory response syndrome) Current visit: No Status: Resolved (4) Crohns disease Current visit: No Status: Chronic (5) Anxiety and depression Current visit: No Status: Chronic (6) History of seizures Current visit: No Status: Chronic (7) Acute alcohol intoxication Current visit: Yes Status: Acute Assessment and Plan: 1. hyponatremia acute POA: admit with NS infusion and cycle NA, obviously correct cautiously most likely hypovolemic hyponatremia but alcohol component cannot be ignored. 2. hypokalemia acute POA; replace and recheck, gi loss 3 Chron's disease chronic POA: patient on disease modyfying biologics, hold acutely. no diarrhea, no sig component to this scenerio 4. anxiety /depression acute on chronic POA: continue to encourage counseling. he is self medicating with alcohol. ativan prn 5. acute on chronic alcohol abuse POA: CIWA. needs to embrace the thought of getting help regarding this. in counseling but for marriage and not specific to his needs. 6. microcytic anemia chronic POA: most likely fron chronic ds but cannot exclude oozing. r/c repeat labs in the am. 7. DVT ppx; SCD DVT Prophylaxis: SCD's GI Prophylaxis: Protonix Resuscitation Status: Full Code - Physician Narrative Physician: Aaron Haider MD Narrative: Date: 09/19/17 Time: 2330 Hospital Course Summary Disclaimer: The visit summary below is not to be considered part of the above Progress Note.
[2017-09-20] MEDS: SALINE FLUSH 10ml SYRINGE IVF PRN ×2 (02:50→15:07)
[2017-09-20] MEDS: NS with KCL 20 mEq 1,000 ML IV SCH (06:34)
[2017-09-20] MEDS ORDERED: PANTOPRAZOLE 40 MG INJECTION IVP SCH (09:00)
[2017-09-20] MEDS ORDERED: MAGNESIUM OXIDE 500 MG PO SCH (09:00)
[2017-09-20] MEDS: MAGNESIUM SULFATE 1gm PREMIX 1 GM/100 ML BAG IV SCH ×2 (09:27→10:39)
[2017-09-20] MEDS: MAGNESIUM OXIDE 400 MG TABLET PO SCH (09:28)
--- NOTE | 2017-09-20 14:57 | History & Physical Report ---
History of Present Illness Date: 09/20/17 HPI: This is a 52 y/o male who presents to the ED tonight due to increased anxiety. The patient drank a significant amount of alcohol since 5 am today and had sense that his electrolytes were getting out of balance. This has occurred x 4 before. The patient presents to the ED and is discovered to have a serum na of 113. The patient is alert and oriented without sig neuro sequel from this. The patient was very anxious and given ativan in the ed. The patient has a history of crohn's disease and has a diverting colostomy after peritonitis after a complications from a colonoscopy. The patient denies suicidal ideation. Pt reports he has seen psych and his pcp for his anxiety and has tried different types of meds without any effect. Denies any cp, sob, but does report some n/v overnight. Reports hx of seizures and tremors from EtOH withdrawal in past. Reports his anxiety has been going on for many years and started when he go the colostomy bag. Reports he drinks daily most of the time and drinks 4-6 cans of beers. Reports he tried a marijuana type candy over the weekend that his friend gave him but it made him sick. Denies any other type of drug use. Please see previous H&P for complete information, i.e. PMH, ROS, SH, FH. Review of Systems All systems PM: 10-point ROS was reviewed, no additional remarkable complaints except - Constitutional Constitutional: Present: as per HPI - EENMT Eyes: Absent: blurry vision, change in vision PFSH Patient Stated Medical History Peripheral Neuropathy Yes: Peripheral Seizures Yes Hypertension Yes Other Cardiology Yes: coded after Zofran administration Gastroesophageal Reflux Yes Disease Other GI Yes: CROHNS Anemia Yes Sepsis Yes: 2 years ago Depression Yes: colostomy related Substance Use Disorder Yes: States "one time" Marijuana use. Medical History Updates: 1. Crohn's disease. 2. Anemia, chronic. 3. Anxiety & Depression. 4. History of seizures. 5. History of electrolyte imbalance - hyponatremia, hypokalemia. 6. Insomnia. 7. Hypertension. 8. Hypercholesterolemia Surgical History: Colostomy with hemicolectomy - Social History Smoking status: Never smoker Does patient use chewing tobacco?: No Current residence: Apartment/Private Home Medications Home Medications Medication Instructions Recorded Confirmed Type Magnesium Oxide [Magnesium] 500 mg PO DAILY 03/20/17 09/19/17 History Ustekinumab [Stelara] 90 mg SQ Q72D 03/20/17 09/19/17 History ALPRAZolam [Xanax] 0.5 mg PO TID PRN 09/19/17 09/19/17 History Atorvastatin Calcium [Atorvastatin 20 mg PO HS 09/19/17 09/19/17 History Calcium] Potassium Chloride 10 meq PO DAILY 09/19/17 09/19/17 History Zolpidem Tartrate [Zolpidem 5 - 10 mg PO HS 09/19/17 09/19/17 History Tartrate] predniSONE [Prednisone] 10 mg PO DAILY 09/19/17 09/19/17 History Allergies Allergy/AdvReac Type Severity Reaction Status Date / Time amoxicillin [From Augmentin] Allergy Severe Difficulty Verified 09/19/17 20:06 Breathing clavulanic acid Allergy Severe Difficulty Verified 09/19/17 20:06 [From Augmentin] Breathing ondansetron Allergy Severe Verified 09/19/17 20:04 REPORTS ZOFRAN WAS BEING ADMINISTERED AND HE SEIZED Exam Vital Signs: Temperature 97.3 F 09/20/17 07:37 Pulse Rate 100 09/20/17 08:00 Respiratory Rate 18 09/20/17 07:37 Blood Pressure 153/86 H 09/20/17 07:37 Pulse Oximetry 96 09/20/17 07:37 Height/Weight/BMI: Height 5 ft 10 in Weight 75.5 kg Body Mass Index 24.5 - Constitutional Present: mild distress, well nourished - Routine HEENT Exam Head: Present: normocephalic, atraumatic Eye: Present: EOMI, PERRL - Routine Neck Exam Present: supple, full ROM - Routine Respiratory Exam Present: CTA bilaterally. Absent: dyspnea, wheezes - Routine Cardiovascular Exam Present: RRR, no murmur. Absent: gallop - Routine Abdominal Exam Present: soft, non distended, non tender - Routine Extremities Exam Present: no edema. Absent: cyanosis, clubbing - Routine Skin Exam Present: intact, dry. Absent: erythema - Routine Neurological Exam Present: alert, oriented X3 - Routine Psychiatric Exam Present: normal affect, normal thought process Results - Labs CBC & Chem 7: 09/20/17 04:05 09/20/17 12:07 Assessment and Plan (1) Hyponatremia with decreased serum osmolality Current visit: No Status: Resolved (2) Hypokalemia Current visit: No Status: Resolved (3) SIRS (systemic inflammatory response syndrome) Current visit: No Status: Resolved (4) Crohns disease Current visit: No Status: Chronic (5) Anxiety and depression Current visit: No Status: Chronic (6) History of seizures Current visit: No Status: Chronic (7) Acute alcohol intoxication Current visit: Yes Status: Acute Assessment and Plan: Hyponatremia -Likely 2/2 EtOH use and malnutrition -Pt is asymptomatic, likely chronic in nature -Order-->Serum/urine osm, urine Na -Repeat Na this am was 120, thats change of 7 so will stop IV fluids and recheck -Goal of no more then 7-8 change per 24 hrs EtOH Withdrawal -CIWA protocol with ativan PRN -EtOH abuse counseling -Thiamine/folate Microcytic Anemia -Likely iron deficiency with crohns -Check FOBT, check iron panel Crohn Disease -Cont. home Stelara, prednisone Anxiety/Depression -Pt needs psych eval/follow up as outpatient Insomina -Cont. Ambien HLD -Cont. atorvastatin Ppx -SCDs - Physician Narrative Narrative: Date: 09/20/17 Time: 1452 Hospital Course Summary Disclaimer: The visit summary below is not to be considered part of the above Progress Note. Hospital Course: 09/20/17 15:15 Pt admitted overnight for hyponatremia. Likely 2/2 beer [place], will work up and manage carefully as not to increase too much. Will treat EtOH withdrawal. Pt stable and otherwise doing well. Pt will benefit from psych eval/follow up as outpatient.
[2017-09-20] MEDS ORDERED: USTEKINUMAB 90 MG PO SCH (15:15)
[2017-09-20] MEDS: FOLIC ACID 1 MG TABLET PO SCH (17:17)
[2017-09-20] MEDS: ATORVASTATIN 20 MG TABLET PO SCH (20:31)
[2017-09-20] MEDS: ZOLPIDEM 10 MG TABLET PO PRN (20:31)
[2017-09-21] MEDS: PANTOPRAZOLE 40 MG TABLET PO SCH (06:03)
[2017-09-21] MEDS: FOLIC ACID 1 MG TABLET PO SCH (08:27)
[2017-09-21] MEDS: PredniSONE 10 MG TABLET PO SCH (08:27)
[2017-09-21] MEDS: MAGNESIUM OXIDE 400 MG TABLET PO SCH (08:27)
--- NOTE | 2017-09-21 10:32 | Progress Note ---
- Date 09/21/17 Subjective: Pt reports he didn't get much rest last night but he does feel a bit better today. Pt denies any n/v/d, f/c, cp or sob. Pt tolerated breakfast well. Pt would like to go home today. Objective Vital signs: Temperature 98.8 F 09/21/17 08:00 Pulse Rate 93 09/21/17 08:00 Respiratory Rate 20 09/21/17 08:00 Blood Pressure 126/82 09/21/17 08:00 Pulse Oximetry 98 09/21/17 08:00 Height/Weight/BMI: Height 5 ft 10 in Weight 75.4 kg Body Mass Index 24.5 - Constitutional Present: no acute distress - Routine HEENT Exam Head: Present: normocephalic, atraumatic Eye: Present: EOMI, PERRL - Routine Respiratory Exam Present: CTA bilaterally. Absent: wheezes, crackles - Routine Cardiovascular Exam Present: RRR, no murmur - Routine Abdominal Exam Present: soft, non distended, non tender - Routine Extremities Exam Present: no edema. Absent: cyanosis, clubbing - Routine Skin Exam Present: intact, dry. Absent: erythema - Routine Neurological Exam Present: alert, oriented X3 - Routine Psychiatric Exam Present: normal affect Results - Labs CBC & Chem 7: 09/20/17 04:05 09/20/17 20:56 Assessment and Plan (1) Hyponatremia with decreased serum osmolality Current visit: No Status: Resolved (2) Hypokalemia Current visit: No Status: Resolved (3) SIRS (systemic inflammatory response syndrome) Current visit: No Status: Resolved (4) Crohns disease Current visit: No Status: Chronic (5) Anxiety and depression Current visit: No Status: Chronic (6) History of seizures Current visit: No Status: Chronic (7) Acute alcohol intoxication Current visit: Yes Status: Acute Assessment and Plan: Hypotonic Euvolemic Hyponatremia -Pt is asymptomatic, likely chronic in nature -Serum osm 247, Destiny 79, Uosm 258-->Points toward SIADH -Na 113-->120 in last 24 hrs, will cont. to correct -Will do water restriction -Unclear etiology for SIADH-->Will check TSH, will consider adrenal insufficiency -Goal of no more then 7-8 change per 24 hrs EtOH Withdrawal/abuse -CIWA protocol with ativan PRN -EtOH abuse counseling -Thiamine/folate -UDS positive for cannabinoid use Microcytic Anemia -Likely iron deficiency with crohns -Check FOBT, check iron panel Crohn Disease -Cont. home Stelara, prednisone Anxiety/Depression -Pt needs psych eval/follow up as outpatient Insomina -Cont. Ambien HLD -Cont. atorvastatin Ppx -SCDs - Physician Narrative Narrative: Date: 09/21/17 Time: 1003 Hospital Course Summary Disclaimer: The visit summary below is not to be considered part of the above Progress Note. Hospital Course: 09/20/17 15:15 Pt admitted overnight for hyponatremia. Likely 2/2 beer [place], will work up and manage carefully as not to increase too much. Will treat EtOH withdrawal. Pt stable and otherwise doing well. Pt will benefit from psych eval/follow up as outpatient. 09/21/17 10:32 Hyponatremia is improving. Work up so far consistent with SIADH, will do fluid restriction. EtOH withdrawal tx going well, will try to back off ativan a little to get ready for discharge.
[2017-09-21] MEDS: MAGNESIUM SULFATE 1gm PREMIX 1 GM/100 ML BAG IV SCH ×2 (11:30→13:19)
[2017-09-21] MEDS: SODIUM CHLORIDE 1 GM TABLET PO SCH ×2 (16:52→20:36)
[2017-09-21] MEDS: ATORVASTATIN 20 MG TABLET PO SCH (20:36)
[2017-09-21] MEDS: SALINE FLUSH 10ml SYRINGE IVF PRN (20:36)
[2017-09-21] MEDS: ZOLPIDEM 10 MG TABLET PO PRN (20:36)
[2017-09-21 20:57] VITALS: RESP 18
[2017-09-22] MEDS: PANTOPRAZOLE 40 MG TABLET PO SCH (06:20)
[2017-09-22] MEDS: PredniSONE 10 MG TABLET PO SCH (08:36)
[2017-09-22] MEDS: FOLIC ACID 1 MG TABLET PO SCH (08:36)
[2017-09-22] MEDS: MAGNESIUM OXIDE 400 MG TABLET PO SCH (08:36)
[2017-09-22] MEDS: SODIUM CHLORIDE 1 GM TABLET PO SCH (08:36)
[2017-09-22 08:44] VITALS: BP 102/80; PULSE 87; TEMP 98.4; O2SAT 97
--- NOTE | 2017-09-22 18:16 | Discharge Summary ---
Discharge Information Date of admission: 09/19/17 22:27 Anticipated date of discharge: 09/22/17 Attending Physician: Adalid Venegas MD Primary care physician: MD Han Morillo MD (GI) - Discharge Diagnosis (1) Hyponatremia with decreased serum osmolality Status: Resolved (2) Hypokalemia Status: Resolved (3) SIRS (systemic inflammatory response syndrome) Status: Resolved (4) Crohns disease Status: Chronic (5) Anxiety and depression Status: Chronic (6) History of seizures Status: Chronic (7) Acute alcohol intoxication Status: Acute Hypotonic Euvolemic hyponatremia Etoh withdrawal/abuse Microcytic anemia Crohns disease ANxiety/depression Insomnia Hyperlipidemia - Laboratory Labs: Dismissal labs 09/22/17 04:15 Turbidity < 20 Sodium 126 L D Potassium 3.8 Chloride 94 L D Carbon Dioxide 23 Anion Gap 9 BUN 11.0 D Creatinine 1.1 D GFR Calculation 70 BUN/Creatinine Ratio 10 Glucose 126 H Calculated Osmolality 244 L Calcium 8.7 Phosphorus 3.9 Icterus Index < 2 Albumin 3.9 Specimen Hemolysis < 15 Admission labs 09/19/17 20:33 WBC 9.8 RBC 4.03 L Hgb 10.9 L Hct 31.5 L MCV 78.2 L MCH 27.0 MCHC 34.6 RDW Std Deviation 36.7 L Plt Count 251 09/19/17 09/19/17 20:33 20:33 Sodium 113 L* Potassium 3.3 L Chloride 78 L Carbon Dioxide 23 Anion Gap 12 BUN 9.0 Creatinine 0.8 GFR Calculation 101 BUN/Creatinine Ratio 11 Glucose 106 Calculated Osmolality 218 L Calcium 8.2 L Magnesium 1.3 L AST 99 H ALT 70 Alkaline Phosphatase 139 H Laboratory Tests 09/19/17 09/19/17 20:33 21:19 U Cannabinoids Screen Positive Alcohol, Quantitative 88 Laboratory Tests 09/20/17 09/20/17 09/21/17 13:22 13:22 14:44 TSH 2.28 Urine Osmolality 258 Ur Random Sodium 79 History of Present Illness HPI: This is a 52 y/o male who presents to the ED tonight due to increased anxiety. The patient drank a significant amount of alcohol since 5 am today and had sense that his electrolytes were getting out of balance. This has occurred x 4 before. The patient presents to the ED and is discovered to have a serum na of 113. The patient is alert and oriented without sig neuro sequel from this. The patient was very anxious and given ativan in the ed. The patient has a history of crohn's disease and has a diverting colostomy after peritonitis after a complications from a colonoscopy. The patient denies suicidal ideation. Pt reports he has seen psych and his pcp for his anxiety and has tried different types of meds without any effect. Denies any cp, sob, but does report some n/v overnight. Reports hx of seizures and tremors from EtOH withdrawal in past. Reports his anxiety has been going on for many years and started when he go the colostomy bag. Reports he drinks daily most of the time and drinks 4-6 cans of beers. Reports he tried a marijuana type candy over the weekend that his friend gave him but it made him sick. Denies any other type of drug use. Please see previous H&P for complete information, i.e. PMH, ROS, SH, FH. Objective Vital signs: Temperature 98.4 F 09/22/17 08:00 Pulse Rate 87 09/22/17 08:00 Respiratory Rate 18 09/22/17 08:00 Blood Pressure 102/80 09/22/17 08:00 Pulse Oximetry 97 09/22/17 08:00 Height/Weight/BMI: Height 1.78 m Weight 71.4 kg Body Mass Index 24.5 - Constitutional Present: no acute distress, well nourished, well developed - Routine HEENT Exam Head: Present: normocephalic, atraumatic - Routine Respiratory Exam Present: CTA bilaterally. Absent: wheezes - Routine Cardiovascular Exam Present: RRR. Absent: murmur - Routine Abdominal Exam Present: soft, normoactive bowel sounds, non distended. Absent: tenderness - Routine Extremities Exam Present: no edema, normal capillary refill - Routine Skin Exam Present: dry, warm - Routine Neurological Exam Present: alert, oriented X3 - Routine Lymphatic Exam Lymphatic: Absent: adenopathy - Routine Psychiatric Exam Present: normal affect, cooperative Hospital Course This is a general summary of the patient's hospital course. For more details refer to the complete medical record. Hospital course: 09/20/17 15:15 Pt admitted overnight for hyponatremia. Likely 2/2 beer [place], will work up and manage carefully as not to increase too much. Will treat EtOH withdrawal. Pt stable and otherwise doing well. Pt will benefit from psych eval/follow up as outpatient. 09/21/17 10:32 Hyponatremia is improving. Work up so far consistent with SIADH, will do fluid restriction. EtOH withdrawal tx going well, will try to back off ativan a little to get ready for discharge. 09/22/17 Dismiss home today with fluid restriction to <2L, salt tabs TID and repeat BMP in 2 days with r-u with PCP next week. Time spent with patient: discharge greater than 30 minutes DVT Prophylaxis: SCD's Discharge Plan - Discharge Disposition Discharge Date: 09/22/17 Disposition: 01 Discharged Home, Self-Care *Condition: Stable Reason For Visit (Visit label in EMR): Hyponatremia - Discharge Medications *Discharge Medications: New Sodium Chloride Tab [Salt Tablet] 1 gm PO TID #90 tab Continue Ustekinumab [Stelara] 90 mg SQ Q72D Atorvastatin Calcium 20 mg PO HS predniSONE [Prednisone] 10 mg PO DAILY Zolpidem Tartrate 5 - 10 mg PO HS Magnesium Oxide [Magnesium] 500 mg PO DAILY ALPRAZolam [Xanax] 0.5 mg PO TID PRN PRN Reason: Anxiety Potassium Chloride 10 meq PO DAILY - Discharge Packet/Instructions *Diet: Regular diet. Limit fluid intake to less than 2 L per day *Activity: Regular activity as tolerated. *Pain Management/Treatment: none *Wound Care: colostomy bag, patient does self cares. Has had bag for 10 years. Additional Instructions: Take the salt tabs 3x a day. Limit fluid intake to 1844-0035 ml. Have lab drawn this Wednesday. *Expected Signs/Symptoms: none *Notify Physician if: You have return of previous symptoms which initially brought you to the hospital. *During Business Hours Contact: Your primary care physician *After Business Hours Contact: Physician's office and follow after instructions or call ER. *Pending Lab/Results: No Pending Lab - Referrals/Follow Up *Referrals/Follow Up: Rai Blount MD [Physician] - (see Dr. Blount in 1 wk, needs BMP this Wednesday with results to be sent to Dr. Blount. APPOITMENT ON 09/30 AT 1:40. PLEASE GET LAB DRAW ON MONDAY 09/24 AT 10:10. ) - Patient Handouts Patient Handouts: Hyponatremia (GEN) Physician Narrative - Narrative Attestation Narrative: Date: 09/22/17 Time: 6810
== END 2017-09-22 13:35 | disposition home or self-care (01) | DRG 641 ==
LOC: ED 19:44 → MED 22:27 → SUATTDRO 22:27 → MED 22:45
PROVIDERS: ADMIT Emergency Medicine; ATTEND Internal Medicine

== ENCOUNTER 2018-03-04 15:20 | Inpatient (IN) ==
--- NOTE | 2018-03-04 15:42 | Emergency Department Report ---
General Adult HPI - General Chief complaint: Anxiety Stated complaint: trembling poss anxiety Time Seen by Provider: 03/04/18 15:42 - Related Data Home Medications Medication Instructions Recorded Confirmed Magnesium Oxide [Magnesium] 500 mg PO DAILY 03/20/17 03/04/18 Ustekinumab [Stelara] 90 mg SQ Q72D 03/20/17 03/04/18 Atorvastatin Calcium 20 mg PO HS 09/19/17 03/04/18 Potassium Chloride 10 meq PO DAILY 09/19/17 03/04/18 Buspirone [Buspar] 15 mg PO BID 10/26/17 03/04/18 Zolpidem [Ambien] 10 mg PO HS 11/12/17 03/04/18 Cyanocobalamin (Vitamin B-12) 1 tab PO DAILY 03/04/18 03/04/18 [Vitamin B-12] predniSONE [Prednisone] 10 mg PO PRN 03/04/18 03/04/18 Previous Rx's Medication Instructions Recorded Sodium Chloride Tab [Salt Tablet] 1 gm PO TID #90 tab 09/22/17 LORazepam [Ativan] 0.5 mg PO TID PRN #21 tab 11/12/17 Allergies Allergy/AdvReac Type Severity Reaction Status Date / Time amoxicillin [From Augmentin] Allergy Severe Difficulty Verified 03/04/18 15:50 Breathing clavulanic acid Allergy Severe Difficulty Verified 03/04/18 15:50 [From Augmentin] Breathing ondansetron Allergy Severe Verified 03/04/18 15:50 REPORTS ZOFRAN WAS BEING ADMINISTERED AND HE SEIZED [facility] Patient Stated Medical History Peripheral Neuropathy Yes: Peripheral Seizures Yes Hypertension Yes Other Cardiology Yes: coded after Zofran administration Gastroesophageal Reflux Yes Disease Other GI Yes: [facility] Anemia Yes Sepsis Yes: 2 years ago Depression Yes: colostomy related Substance Use Disorder Yes: States "one time" Marijuana use. Medical History Updates: 1. Crohn's disease. 2. Anemia, chronic. 3. Anxiety & Depression. 4. History of seizures. 5. History of electrolyte imbalance - hyponatremia, hypokalemia. 6. Insomnia. 7. Hypertension. 8. Hypercholesterolemia Surgical History: Colostomy with hemicolectomy Family History Updates: Father - alive, age 84, no known conditions. Mother - , age 66, breast cancer. Son - alive, age 13, health. - Social History Smoking status: Never smoker Substance use type: does not use Alcohol intake: current Alcohol intake frequency: former alcohol drinker Housing: house Household members: spouse service: No Current occupational status: employed Does patient use chewing tobacco?: No Current residence: Apartment/Private Home Medical Decision Making - Lab Data Result diagrams: 03/04/18 16:01 03/04/18 16:01 Disposition Clinical Impression: Hyponatremia [place]: 02 [place] [facility] [place] Prescriptions: No Action Ustekinumab [Stelara] 90 mg SQ Q72D Atorvastatin Calcium 20 mg PO HS Sodium Chloride Tab [Salt Tablet] 1 gm PO TID #90 tab predniSONE [Prednisone] 10 mg PO PRN Cyanocobalamin (Vitamin B-12) [Vitamin B-12] 1 tab PO DAILY Magnesium Oxide [Magnesium] 500 mg PO DAILY Potassium Chloride 10 meq PO DAILY Buspirone [Buspar] 15 mg PO BID Zolpidem [Ambien] 10 mg PO HS LORazepam [Ativan] 0.5 mg PO TID PRN #21 tab PRN Reason: Anxiety Referrals: [facility] [Primary Care Provider] - Han Knight MD [Family Provider] - Time of Disposition: 16:40 - Seen By: physician
[2018-03-04] MEDS ORDERED: THIAMINE 100 MG, FOLIC ACID INJ 1 MG, MULTI-VIT INFUSION 10 ML in NS 1,000 ML IV ONE (15:45)
[2018-03-04] MEDS: SALINE FLUSH 10ml SYRINGE IVF PRN ×3 (15:55→17:34)
--- NOTE | 2018-03-04 17:52 | History & Physical Report ---
History of Present Illness Date: 03/04/18 Chief complaint: anxiety, hyponatremia HPI: Patient is a 52-year-old male who presented to the emergency room today complaining of anxiety and shakiness. He reports that he had been sober for 5 months. However, recently started drinking again. He reports that over Memorial Day weekend both Wednesday and Wednesday he did drink excessive alcohol. He reports that today he was having increased stress and overlarge drink several beers. He then went home and began to drink increased Gatorade to help replace electrolytes. However, he was concerned that he could have a seizure as he has in the past related to alcohol use. This prompted him to present to the emergency room for acute evaluation. He was found to have significant hyponatremia with a sodium of 120, potassium is normal at 4.0. Magnesium was also low at 1.5. Given the severity of hyponatremia. The hospitalist services were contacted and accepted. Patient for inpatient admission for further evaluation and treatment. CBC reveals mild elevated white count 13.1, hemoglobin 8.9, which patient reports is "normal". Patient has a colostomy due to complication following a colonoscopy. He also has a known history of Crohn's disease. He reports having increased stress, going through a divorce. He is noted to be tachycardic in the 120s. His only complaint is feeling anxious. Denies any pain. Review of Systems All systems PM: 10-point ROS was reviewed, no additional remarkable complaints except - Psychiatric Psychiatric: Present: abnormal sleep pattern, anxiety, depression Past Medical History Medical History Updates: Crohn's disease. Anemia, chronic. Anxiety & Depression. History of seizures. History of electrolyte imbalance - hyponatremia, hypokalemia. Insomnia. Hypertension. Hypercholesterolemia. Reported cardiac arrest following Zofran Surgical History: Colostomy with hemicolectomy Family History: No Significant Family History - Social History Smoking status: Never smoker Substance use type: does not use Alcohol intake frequency: 3 or more drinks per day Last drink: just [employer] Housing: house Current occupational status: employed Does patient use chewing tobacco?: No Current residence: Apartment/Private Home Social history: Currently going through a divorce. Increased work stress. Increased alcohol use. 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 Knight- Employee Counselor Dr Yoshi Blount-[place], [place] Medications Home Medications Medication Instructions Recorded Confirmed Type Magnesium Oxide [Magnesium] 500 mg PO DAILY 03/20/17 03/04/18 History Ustekinumab [Stelara] 90 mg SQ Q72D 03/20/17 03/04/18 History Atorvastatin Calcium 20 mg PO HS 09/19/17 03/04/18 History Potassium Chloride 10 meq PO DAILY 09/19/17 03/04/18 History Sodium Chloride Tab [Salt Tablet] 1 gm PO TID #90 tab 09/22/17 03/04/18 Rx Buspirone [Buspar] 15 mg PO BID 10/26/17 03/04/18 History LORazepam [Ativan] 0.5 mg PO TID PRN #21 tab 11/12/17 03/04/18 Rx Zolpidem [Ambien] 10 mg PO HS 11/12/17 03/04/18 History Cyanocobalamin (Vitamin B-12) 1 tab PO DAILY 03/04/18 03/04/18 History [Vitamin B-12] predniSONE [Prednisone] 10 mg PO PRN 03/04/18 03/04/18 History Allergies Allergy/AdvReac Type Severity Reaction Status Date / Time amoxicillin [From Augmentin] Allergy Severe Difficulty Verified 03/04/18 15:50 Breathing clavulanic acid Allergy Severe Difficulty Verified 03/04/18 15:50 [From Augmentin] Breathing ondansetron Allergy Severe Verified 03/04/18 15:50 REPORTS ZOFRAN WAS BEING ADMINISTERED AND HE SEIZED Exam Vital Signs: Temperature 99.0 F 03/04/18 15:35 Pulse Rate 140 H 03/04/18 15:35 Respiratory Rate 18 03/04/18 17:32 Blood Pressure 187/116 H 03/04/18 15:35 Pulse Oximetry 98 03/04/18 15:35 Telemetry Rhythm: Sinus Tachycardia (120) - Constitutional Present: no acute distress, well nourished, well developed - Routine HEENT Exam Eye: Present: EOMI ENT: Present: mucous membranes moist, dentition normal - Routine Respiratory Exam Present: CTA bilaterally. Absent: wheezes - Routine Cardiovascular Exam Present: RRR, S1, S2. Absent: murmur - Routine Abdominal Exam Present: soft, normoactive bowel sounds, non distended, ostomy. Absent: tenderness - Routine Extremities Exam Present: full ROM, pulses intact - Routine Back/Spine/Pelvis Exam Back/Spine: Present: full ROM - Routine Skin Exam Present: intact, dry, warm - Routine Neurological Exam Present: alert, oriented X3, CN II-XII intact - Routine Psychiatric Exam Present: normal affect, cooperative, anxious Results - Labs CBC & Chem 7: 03/04/18 16:01 03/04/18 16:01 Assessment and Plan (1) Hyponatremia with decreased serum osmolality Current visit: No Status: Acute Assessment and Plan: Impression Hypoosmotic hyponatremia - Severe- 120 Hypomagnesemia - POA Tachycardia-present on admission Anxiety Increased alcohol use recently Anemia-chronic Crohn's disease Hypertension Hypercholesterolemia Insomnia History of seizures secondary to alcohol binge Plan The patient, inpatient status under care of Dr. Haider for severe hyponatremia Will begin with gentle fluid hydration. Goal serum sodium is to increase 4-6 Meq /L in 24 hours. Want to avoid rapid correction Recheck BMP at 2200 and again 0400 Monitor on cardiac telemetry as he as increased risk for dysrhythmias given electrolyte abnormalities Monitor for evidence of seizures- seizure precaution Will replace magnesium IV Continue with Ativan and Ambien for anxiety and insomnia Patient does report anemia is chronic. However, reviewing old records Hgb ranged between 10- 12.Will give Iron supplementation. SCDs to bilateral lower extremity for DVT prophylaxis Protonix daily for GI protection Recheck CBC, BMP and Mg tomorrow morning Will discuss further orders and plan of care with attending, Dr. Haider At time of discharge medical care will return to Dr Knight- GI and PCP Yoshi Blount in [place], [place] DVT Prophylaxis: SCD's GI Prophylaxis: Protonix Resuscitation Status: Full Code - Physician Narrative Physician: Aaron Haider MD Narrative: Date: 03/04/18 Time: 2113 Have independently interviewed and examined pt. Chart reviewed. Case discussed with ED physician and my PIG [employer]EDER. Care plan developed with my supervision; agree with above. Present to ED secondary to increasing shakiness and worry of hyponatremia. Drinking binge on weekend (02/28 to 03/02). Since then, feeling more weak and shaky. Anxiety increasing. Not sleeping well - increased intake of Ambien to 20mg at night. Not hungry for past 2 day. Seen in ED. Sodium decreased to 120. Placed in inpatient admission status for correction of sodium. Lungs: clear CV: tachy, regular AB: soft nt/nd EXT: no edema MSE: awake alert, remarkably clear for low sodium Plan: Inpatient admission. NS to help correct sodium; monitor closely. Discussed with patient about propranolol to help anxious feeling-will try 10mg po q 8hr prn. Thiamine and folic acid due to etoh use. Correct magnesium. SCD for DVT prevention. Full code. Hospital Course Summary Disclaimer: The visit summary below is not to be considered part of the above Progress Note. Hospital Course: Admit inpatient status under care of Dr. Haider for severe hyponatremia with sodium 120 at presentation. Will begin with gentle fluid hydration. Goal serum sodium is to increase 4-6 Meq /L in 24 hours. Want to avoid rapid correction. Recheck BMP at 2200 and again 0400. Monitor on cardiac telemetry as he as increased risk for dysrhythmias given electrolyte abnormalities. Monitor for evidence of seizures- seizure precaution. Will replace magnesium IV - 2grams IV. Continue with Ativan and Ambien for anxiety and insomnia. Could try propranolol 10mg q8hr prn anxiety. Patient does report anemia is chronic. However, reviewing old records Hgb ranged between 10- 12. Will give Iron supplementation. SCDs to bilateral lower extremity for DVT prophylaxis. Protonix daily for GI protection. Recheck CBC, BMP and Mg tomorrow morning. At time of discharge medical care will return to Dr Daniel CERVANTES and PCP Yoshi Blount in [place], [place].
[2018-03-04 17:57] VITALS: BMI 21.9
[2018-03-04] MEDS ORDERED: LORazepam 0.5 MG TABLET PO PRN (18:13)
[2018-03-04] MEDS: NS 1,000 ML IV SCH (18:25)
[2018-03-04] MEDS: MAGNESIUM SULFATE 1gm PREMIX 1 GM/100 ML BAG IV SCH ×2 (18:27→20:23)
[2018-03-04] MEDS: PANTOPRAZOLE 40 MG INJECTION IVP SCH (18:28)
[2018-03-04] MEDS ORDERED: ATORVASTATIN 20 MG TABLET PO SCH (21:00)
[2018-03-04] MEDS ORDERED: BUSPIRONE 15 MG TABLET PO SCH (21:00)
[2018-03-04] MEDS ORDERED: ZOLPIDEM 10 MG TABLET PO SCH (21:00)
[2018-03-04] MEDS ORDERED: PROPRANOLOL 10 MG TABLET PO PRN (21:22)
[2018-03-04] MEDS: SODIUM CHLORIDE 1 GM TABLET PO SCH (21:51)
[2018-03-05] MEDS: NS 1,000 ML IV SCH ×2 (04:28→13:09)
[2018-03-05] MEDS ORDERED: FERROUS SULFATE 324 MG TABLET PO SCH (08:00)
[2018-03-05] MEDS: PANTOPRAZOLE 40 MG INJECTION IVP SCH (08:59)
[2018-03-05] MEDS: SODIUM CHLORIDE 1 GM TABLET PO SCH ×2 (08:59→14:49)
[2018-03-05] MEDS ORDERED: MAGNESIUM OXIDE 400 MG TABLET PO SCH (09:00)
[2018-03-05] MEDS ORDERED: FOLIC ACID 1 MG TABLET PO SCH (09:00)
[2018-03-05] MEDS ORDERED: FOLIC ACID 5 MG/ML INJECTION IVP SCH (09:00)
[2018-03-05] MEDS ORDERED: CYANOCOBALAMIN (B-12) 500mcg TABLET PO SCH (09:00)
[2018-03-05] MEDS ORDERED: THIAMINE 100 MG in NS 50 ML IV SCH (10:00)
[2018-03-05] MEDS ORDERED: NS 1,000 ML IV SCH (12:00)
[2018-03-05 14:50] VITALS: RESP 16
[2018-03-05 14:52] VITALS: BP 135/84; TEMP 96.8; O2SAT 100
--- NOTE | 2018-03-05 16:20 | Progress Note ---
- Date 03/05/18 Subjective: F/U: Hyponatremia Feeling much better today. Not feeling weak or shaky. Strength improved. Eating well-no nausea or ab pain. Urinating well. Stool output at baseline. Breathing well without SOA, cough, or congestion. No chest pain. No leg cramps. Slept poorly last night. Does feel up to going home; really would like to go home. Objective Vital signs: Temperature 96.8 F 03/05/18 14:51 Pulse Rate 82 03/05/18 14:51 Respiratory Rate 16 03/05/18 14:51 Blood Pressure 135/84 03/05/18 14:51 Pulse Oximetry 100 03/05/18 14:51 Height/Weight/BMI: Height 1.78 m Weight 68 kg Body Mass Index 21.9 - Constitutional Present: no acute distress, well nourished, well developed, average body habitus , cooperative. Absent: agitated, somnolent, obtunded - Routine HEENT Exam Head: Present: normocephalic, atraumatic Eye: Present: EOMI, PERRL, normal accommodation ENT: Present: mucous membranes moist - Routine Respiratory Exam Present: CTA bilaterally. Absent: respiratory distress, wheezes, crackles - Routine Cardiovascular Exam Present: RRR, no murmur - Routine Abdominal Exam Present: soft, normoactive bowel sounds, non distended, non tender. Absent: guarding - Routine Extremities Exam Present: no edema, pulses intact. Absent: cyanosis, clubbing - Routine Skin Exam Present: intact, dry, warm - Routine Neurological Exam Present: alert, oriented X3, CN II-XII intact, moving all extremities, vision grossly intact, hearing grossly intact, normal speech. Absent: motor deficit, altered mental status - Routine Psychiatric Exam Present: normal affect, normal thought process, cooperative Results - Labs CBC & Chem 7: 03/05/18 04:14 03/05/18 11:11 Assessment and Plan (1) Hyponatremia with decreased serum osmolality Current visit: No Status: Acute Assessment and Plan: Impression Hypoosmotic hyponatremia - Severe- 120 Hypomagnesemia - POA Tachycardia-present on admission Anxiety Increased alcohol use recently Anemia-chronic Crohn's disease Hypertension Hypercholesterolemia Insomnia History of seizures secondary to alcohol binge Plan Feeling much better-not feeling shaky/unsteady. Strength improved. Feels ready to go home. Sodium with improvement - 137 this am and 136 on recheck. Neurologically intact. WBC normal. BP stable. Will discharge to home. Continue with home medications. Could use Propranolol 10mg po q8hr to help anxious feeling. Encourage avoidance of alcohol. F/U with Dr Susie Blount in 1 week - recommend rechecking BMP and Mg. See orders for details. Time spent with patient care and discharge greater than 30 minutes. DVT Prophylaxis: SCD's GI Prophylaxis: Protonix Resuscitation Status: Full Code - Physician Narrative Physician: Aaron Haider MD Narrative: Date: 03/05/18 Time: 1617 Hospital Course Summary Disclaimer: The visit summary below is not to be considered part of the above Progress Note. Hospital Course: 03/04/18 Admit inpatient status under care of Dr. Haider for severe hyponatremia with sodium 120 at presentation. Will begin with gentle fluid hydration. Goal serum sodium is to increase 4-6 Meq /L in 24 hours. Want to avoid rapid correction. Recheck BMP at 2200 and again 0400. Monitor on cardiac telemetry as he as increased risk for dysrhythmias given electrolyte abnormalities. Monitor for evidence of seizures- seizure precaution. Will replace magnesium IV - 2grams IV. Continue with Ativan and Ambien for anxiety and insomnia. Could try propranolol 10mg q8hr prn anxiety. Patient does report anemia is chronic. However, reviewing old records Hgb ranged between 10- 12. Will give Iron supplementation. SCDs to bilateral lower extremity for DVT prophylaxis. Protonix daily for GI protection. Recheck CBC, BMP and Mg tomorrow morning. At time of discharge medical care will return to Dr Daniel CERVANTES and PCP Yoshi Blount in [place], [place]. 03/05/18 Feeling much better-not feeling shaky/unsteady. Strength improved. Feels ready to go home. Sodium with improvement - 137 this am and 136 on recheck. Neurologically intact. WBC normal. BP stable. Will discharge to home. Continue with home medications. Could use Propranolol 10mg po q8hr to help anxious feeling. Encourage avoidance of alcohol. F/U with Dr Susie Blount in 1 week - recommend rechecking BMP and Mg. See orders for details.
--- NOTE | 2018-03-05 16:36 | Discharge Summary ---
Discharge Information Date of admission: 03/04/18 16:37 Anticipated date of discharge: 03/05/18 Attending Physician: Aaron Haider MD Primary care physician: Dr Ysohi Blount - Discharge Diagnosis (1) Hyponatremia with decreased serum osmolality Status: Acute Discharge diagnosis Hypoosmotic hyponatremia (POA) Severe - 120 Associated conditions and complications Hypomagnesemia (POA) Tachycardia (POA) Anxiety Increased alcohol use recently Anemia-chronic Crohn's disease Hypertension Hypercholesterolemia Insomnia History of seizures secondary to alcohol binge - Laboratory Labs: Admit Lab 03/04/18 16:01 Sodium 120 L Potassium 4.0 Chloride 86 L Carbon Dioxide 21 L Anion Gap 13 BUN 7.0 L Creatinine 0.9 GFR Calculation 88 BUN/Creatinine Ratio 8 Glucose 173 H Calculated Osmolality 234 L Calcium 8.6 Magnesium 1.5 L Total Bilirubin 0.50 AST 48 ALT 35 Alkaline Phosphatase 91 Total Protein 7.5 Albumin 4.5 Globulin 3.0 Albumin/Globulin Ratio 1.5 Admit Lab 03/04/18 16:01 WBC 13.1 H Hgb 8.9 L Hct 28.1 L MCV 69.0 L Plt Count 356 Neutrophils % (Manual) 91.0 H Lymphocytes % (Manual) 3.0 L Monocytes % (Manual) 6.0 Neutrophils # (Manual) 11.9 H Lymphocytes # (Manual) 0.4 L Monocytes # (Manual) 0.8 03/05/18 04:14 03/05/18 11:11 History of Present Illness HPI: Patient is a 52-year-old male who presented to the emergency room today complaining of anxiety and shakiness. He reports that he had been sober for 5 months. However, recently started drinking again. He reports that over Memorial Day weekend both Wednesday and Wednesday he did drink excessive alcohol. He reports that today he was having increased stress and overlarge drink several beers. He then went home and began to drink increased Gatorade to help replace electrolytes. However, he was concerned that he could have a seizure as he has in the past related to alcohol use. This prompted him to present to the emergency room for acute evaluation. He was found to have significant hyponatremia with a sodium of 120, potassium is normal at 4.0. Magnesium was also low at 1.5. Given the severity of hyponatremia. The hospitalist services were contacted and accepted. Patient for inpatient admission for further evaluation and treatment. CBC reveals mild elevated white count 13.1, hemoglobin 8.9, which patient reports is "normal". Patient has a colostomy due to complication following a colonoscopy. He also has a known history of Crohn's disease. He reports having increased stress, going through a divorce. He is noted to be tachycardic in the 120s. His only complaint is feeling anxious. Denies any pain. For complete details of the H&P refer to that document. Objective Vital signs: Temperature 96.8 F 03/05/18 14:51 Pulse Rate 82 03/05/18 14:51 Respiratory Rate 16 03/05/18 14:51 Blood Pressure 135/84 03/05/18 14:51 Pulse Oximetry 100 03/05/18 14:51 Height/Weight/BMI: Height 1.78 m Weight 68 kg Body Mass Index 21.9 Hospital Course This is a general summary of the patient's hospital course. For more details refer to the complete medical record. Hospital course: 03/04/18 Admit inpatient status under care of Dr. Haider for severe hyponatremia with sodium 120 at presentation. Will begin with gentle fluid hydration. Goal serum sodium is to increase 4-6 Meq /L in 24 hours. Want to avoid rapid correction. Recheck BMP at 2200 and again 0400. Monitor on cardiac telemetry as he as increased risk for dysrhythmias given electrolyte abnormalities. Monitor for evidence of seizures- seizure precaution. Will replace magnesium IV - 2grams IV. Continue with Ativan and Ambien for anxiety and insomnia. Could try propranolol 10mg q8hr prn anxiety. Patient does report anemia is chronic. However, reviewing old records Hgb ranged between 10- 12. Will give Iron supplementation. SCDs to bilateral lower extremity for DVT prophylaxis. Protonix daily for GI protection. Recheck CBC, BMP and Mg tomorrow morning. At time of discharge medical care will return to Dr Knight- GI and PCP Yoshi Blount in [place], [place]. 03/05/18 Feeling much better-not feeling shaky/unsteady. Strength improved. Feels ready to go home. Sodium with improvement - 137 this am and 136 on recheck. Neurologically intact. WBC normal. BP stable. Will discharge to home. Continue with home medications. Could use Propranolol 10mg po q8hr to help anxious feeling. Encourage avoidance of alcohol. F/U with Dr Susie Blount in 1 week - recommend rechecking BMP and Mg. See orders for details. Time spent with patient: discharge greater than 30 minutes Resuscitation Status: Full Code Discharge Plan - Discharge Disposition Discharge Date: 03/05/18 Disposition: 01 Discharged Home, Self-Care *Condition: Stable Reason For Visit (Visit label in EMR): hypoatremia - Discharge Medications *Discharge Medications: New Propranolol [Inderal] 10 mg PO Q8HR PRN #20 tab PRN Reason: Anxiety Continue Ustekinumab [Stelara] 90 mg SQ Q72D Atorvastatin Calcium 20 mg PO HS Sodium Chloride Tab [Salt Tablet] 1 gm PO TID #90 tab predniSONE [Prednisone] 10 mg PO PRN Cyanocobalamin (Vitamin B-12) [Vitamin B-12] 1 tab PO DAILY Magnesium Oxide [Magnesium] 500 mg PO DAILY Potassium Chloride 10 meq PO DAILY Zolpidem [Ambien] 10 mg PO HS LORazepam [Ativan] 0.5 mg PO TID PRN #21 tab PRN Reason: Anxiety Discontinued Buspirone [Buspar] 15 mg PO BID - Discharge Packet/Instructions *Diet: Regular *Activity: As tolerated *Pain Management/Treatment: Continue prior home pain medications. *Wound Care: n/a *Expected Signs/Symptoms: Improvement of strength and stability *Notify Physician if: Temp >100.4. Intractable nausea or ab pain. *During Business Hours Contact: Dr Blount *After Business Hours Contact: Dr Blount *Pending Lab/Results: No Pending Lab - Referrals/Follow Up *Referrals/Follow Up: Rai Blount MD [Physician] - 1 Week (Hospital follow up for hyponatremia. ) - Patient Handouts - Dismissal Complete Discharge Instructions are:: Complete Physician Narrative - Narrative Physician: Aaron Haider MD Attestation Narrative: Date: 03/05/18 Time: 1631 I have independently interviewed and examined patient prior to discharge. See my progress note for details. Medically stable for discharge to home.
[2018-03-05 17:13] VITALS: PULSE 92
== END 2018-03-05 17:03 | disposition home or self-care (01) | DRG 641 ==
LOC: ED 15:20 → EDHOLD 16:37 → MED 17:45
PROVIDERS: ADMIT Hospitalist; ATTEND Hospitalist

== ENCOUNTER 2018-04-21 19:54 | Observation (INO) ==
[2018-04-21] MEDS ORDERED: PROPRANOLOL 20 MG TABLET PO ONE (21:44)
--- NOTE | 2018-04-21 21:44 | Emergency Department Report ---
Anxiety HPI - General Chief Complaint: Anxiety Stated Complaint: Sodium Low Time Seen by Provider: 04/21/18 21:38 Source: patient, family, RN notes reviewed, old records reviewed Mode of arrival: ambulatory Limitations: no limitations - History of Present Illness HPI narrative: 52yo man presents to the ER for evaluation of 'low sodium'. Pt is in the middle of a divorce; he has chronic hyponatremia, caused by an ostomy. Pt also had chronic depression/anxiety, partly as a result of the ostomy. Pt saw a psychiatrist one week ago and was started on lexapro 10mg. He has been taking that ever since. Over the last two days, pt has had one bottle of wine/day to try to cope with his anxiety. As a result, pt has not been taking any of his meds, including his NaCl tablets. Of note, pt does not drink electrolyte containing fluids; he does drink coffee all day long. MD complaint: anxiety Onset (ago): week(s) Symptoms: sense of impending doom (Believes that he is going to seize or code) Provoking factors: emotional stress, other (Divorce, crohn's, ostomy) Relieving factors: nothing Exacerbating factors: thinking about event, other (EtOH; not taking meds) - Related Data Home Medications: Home Medications Medication Instructions Recorded Confirmed Magnesium Oxide [Magnesium] 500 mg PO DAILY 03/20/17 04/21/18 Ustekinumab [Stelara] 90 mg SQ Q56D 03/20/17 04/21/18 Atorvastatin Calcium 20 mg PO HS 09/19/17 04/21/18 Potassium Chloride 10 meq PO DAILY 09/19/17 04/21/18 Zolpidem [Ambien] 10 mg PO HS 11/12/17 04/21/18 Cyanocobalamin (Vitamin B-12) 1 tab PO DAILY 03/04/18 04/21/18 [Vitamin B-12] Escitalopram [Lexapro] 10 mg PO DAILY 04/21/18 04/21/18 Previous Rx's Medication Instructions Recorded Sodium Chloride Tab [Salt Tablet] 1 gm PO TID #90 tab 09/22/17 predniSONE [Prednisone] 10 mg PO DAILY #30 tab 04/01/18 Allergies/Adverse Reactions: Allergies Allergy/AdvReac Type Severity Reaction Status Date / Time amoxicillin [From Augmentin] Allergy Severe Difficulty Verified 04/21/18 20:34 Breathing clavulanic acid Allergy Severe Difficulty Verified 04/21/18 20:34 [From Augmentin] Breathing ondansetron Allergy Severe Verified 04/21/18 20:34 REPORTS ZOFRAN WAS BEING ADMINISTERED AND HE SEIZED Review of Systems All systems: reviewed and negative except as stated Neurological: Reports: as per HPI, other (Muscle cramps). Denies: headache, weakness, numbness, paresthesias, confusion, abnormal gait, vertigo Psychiatric: Reports: as per HPI, anxiety, depression. Denies: suicidal thoughts, homicidal thoughts, auditory hallucinations, visual hallucinations PFS Patient Stated Medical History Peripheral Neuropathy Yes: Peripheral Seizures Yes Hypertension Yes Other Cardiology Yes: coded after Zofran administration Gastroesophageal Reflux Yes Disease Other GI Yes: CROHNS Anemia Yes Sepsis Yes Depression Yes: colostomy related Substance Use Disorder Yes: States "one time" Marijuana use. Medical History Updates: Crohn's disease. Anemia, chronic. Anxiety & Depression. History of seizures. History of electrolyte imbalance - hyponatremia, hypokalemia. Insomnia. Hypertension. Hypercholesterolemia. Reported cardiac arrest following Zofran Surgical History: Colostomy with hemicolectomy Family History Updates: Father - alive, age 84, no known conditions. Mother - , age 66, breast cancer. Son - alive, age 13, health. - Social History Smoking status: Never smoker Substance use type: does not use Alcohol intake: current Alcohol intake frequency: 3 or more drinks per day Housing: house Household members: spouse service: No Current occupational status: employed Does patient use chewing tobacco?: No Current residence: Apartment/Private Home Physical Exam - Limitations Limitations: no limitations - General General appearance: alert, in no apparent distress - Normal Exams: Head:: Normocephalic without trauma Eyes:: Pupils are PERRLA w/ EOMI, No scleral icterus, irritation, or foreign bodies noted ENMT:: No facial trauma, nasal exudates, pharyngeal erythema, or exudates are noted Neck:: Full range of motion, without adenopathy Chest/Respirations:: Clear all mckeon Cardiovascular:: Regular rate and rhythm Abdomen:: Bowel sounds positive Lymphatic:: No lymphadenopathy Musculoskeletal:: No tenderness, or deformity noted Integumentary:: No rashes, hives, or bruising noted Neurological:: Patient is alert, and oriented - Psychiatric Psychiatric exam: Present: agitated, anxious Course - Consultations Consultation #1: [facility] Telemed: Will admit to treat hyponatremia and acute anxiety. Vital Signs Temperature 98.0 F 04/21/18 20:22 Pulse Rate 87 04/21/18 20:22 Respiratory Rate 18 04/21/18 20:22 Blood Pressure 177/109 H 04/21/18 20:22 Pulse Oximetry 100 04/21/18 20:22 Temperature 98.0 F 04/21/18 20:22 Pulse Rate 97 04/21/18 23:07 Respiratory Rate 18 04/21/18 20:22 Blood Pressure 175/112 H 04/21/18 23:06 Pulse Oximetry 100 04/21/18 20:22 Anxiety - MDM Narrative Medical decision making narrative: Pt with severe anxiety, and acute on chronic hyponatremia. Discussed pt with hospitalist, who will admit obs for further hyponatremia treatment and eval for acute treatment of his anxiety. Pt is now allowing his anxiety to interfere with his medications to prevent hyponatremia. However, pts daily behavior is making his hyponatremia worse anyway. - Differential Diagnosis Differential diagnosis: Likely: hyperventilation, panic disorder, acute anxiety (Hyponatremia) - Medical Records Attestation: I reviewed the patient's medical records. - Lab Data Attestation: I reviewed the patient's lab results. Result diagrams: 04/21/18 21:53 04/21/18 21:53 Lab Results 04/21/18 04/21/18 Range/Units 21:53 21:53 WBC 13.3 H (4.5-11.0) T/MM3 RBC 4.59 (4.50-5.90) M/MM3 Hgb 9.6 L (13.5-17.5) GM/DL Hct 30.2 L (41-53) % MCV 65.8 L (80-100) UM3 MCH 20.9 L (26-34) UUG MCHC 31.8 (31-37) GM/DL RDW Std Deviation 37.9 (36.9-50.2) FL Plt Count 514 H D (130-400) T/MM3 MPV 7.9 L (9.4-12.4) UM3 Neutrophils % (Manual) 92.0 H (33-66) % Lymphocytes % (Manual) 5.0 L (23-45) % Monocytes % (Manual) 1.0 (0-9.0) % Basophils % (Manual) 2.0 (0-2) % Neutrophils # (Manual) 12.2 H (1.8-7.7) T/MM3 Lymphocytes # (Manual) 0.7 L (1-4.8) T/MM3 Monocytes # (Manual) 0.1 (0-0.8) T/MM3 Basophils # (Manual) 0.3 H (0-0.2) T/MM3 Anisocytosis 1+ Microcytosis 1+ RBC Morph Comment Abnormal Turbidity < 20 (0-20) Sodium 124 L (136-146) MEQ/L Potassium 3.8 (3.6-5) MEQ/L Chloride 87 L (98-107) MEQ/L Carbon Dioxide 20 L (22-30) MEQ/L Anion Gap 17 H (5-15) meq/L BUN 8.0 L (9-20) MG/DL Creatinine 0.8 (0.8-1.5) mg/dL GFR Calculation 101 BUN/Creatinine Ratio 10 (6-26) RATIO Glucose 124 H (75-110) MG/DL Calculated Osmolality 239 L (261-280) MOSM/KG Calcium 9.2 (8.4-10.2) MG/DL Icterus Index < 2 (0-7) Specimen Hemolysis < 15 (0-25) Disposition Clinical Impression: Anxiety, Hyponatremia, History of creation of ostomy Crohns disease Qualifiers: Gastrointestinal tract location: unspecified location Digestive disease complication type: unspecified complication Qualified Code(s): K50.919 - Crohn' s disease, unspecified, with unspecified complications Disposition: To [facility] Condition: Stable Time of Disposition: 23:15 - Seen By: physician
[2018-04-21] MEDS ORDERED: SODIUM CHLORIDE 1 GM TABLET PO ONE (22:14)
[2018-04-21] MEDS ORDERED: LORazepam 2 MG TABLET PO ONE (22:34)
[2018-04-21] MEDS ORDERED: SALINE FLUSH 10ml SYRINGE IVF PRN (23:10)
[2018-04-21] MEDS ORDERED: NS 1,000 ML IV ONE (23:12)
--- NOTE | 2018-04-21 23:45 | History & Physical Report ---
History of Present Illness Date: 04/22/18 Chief complaint: anxiety HPI: 52-year-old white male presented to the emergency room thinking that his sodium was low. He's been on alcohol binge for 2-3 days because of anxiety, sounds like it's mostly related to his stressors in life including his estrangement from his she had moved to 9 months ago, he also has a 14-year-old with diabetes type 1 who he says is not very serious about treating it well. He is drinking about a bottle of wine in the past 2 days each. He says even on days besides those 2 days he'll have 6-8 beers a day. The says he drinks primarily treating his severe anxiety. About one week ago he saw psychiatrist was prescribed Lexapro. He has not been taking his sodium supplements for the past 3 days. He has an ostomy as a result of complication from a colonoscopy where he had a perforated colon and had to have a partial colectomy. Its common for him to have multiple liquid stools and his ostomy daily. He denies suicidality. He says he is probably an alcoholic. He says he feels humiliated/ashamed of self right now. Asks me a couple of times "am I gonna be ok? With looking at my labs, am I gonna be ok?" Review of Systems All systems PM: 10-point ROS was reviewed, no additional remarkable complaints except Review of systems: he denies abdominal pain fever chills he denies cough or shortness of breath he denies any black or bloody stools otherwise negative except as per HPI He did have a seizure once in past around time of alcohol binge but denies withdrawal sz, denies acute etoh w/d otherwise he does state in the past she's been on a anxiety medicines of Ativan or Xanax , he says the SSRIs typically not work for him. Past Medical History Medical History Updates: Crohn's disease. Anemia, chronic. Anxiety & Depression. History of seizures. History of electrolyte imbalance - hyponatremia, hypokalemia. Insomnia. Hypertension. Hypercholesterolemia. Reported cardiac arrest following Zofran Surgical History: Colostomy with hemicolectomy Family History: n/c Family History: As Above - Social History Smoking status: Never smoker Alcohol intake: current Alcohol intake frequency: 3 or more drinks per day (1 bottle of wine daily past few days) Does patient use chewing tobacco?: No Current residence: Apartment/Private Home Medications Home Medications Medication Instructions Recorded Confirmed Type Magnesium Oxide [Magnesium] 500 mg PO DAILY 03/20/17 04/21/18 History Ustekinumab [Stelara] 90 mg SQ Q56D 03/20/17 04/21/18 History Atorvastatin Calcium 20 mg PO HS 09/19/17 04/22/18 History Potassium Chloride 10 meq PO DAILY 09/19/17 04/21/18 History Sodium Chloride Tab [Salt Tablet] 1 gm PO TID #90 tab 09/22/17 04/21/18 Rx Zolpidem [Ambien] 10 mg PO HS 11/12/17 04/21/18 History Cyanocobalamin (Vitamin B-12) 1 tab PO DAILY 03/04/18 04/21/18 History [Vitamin B-12] predniSONE [Prednisone] 10 mg PO DAILY #30 tab 04/01/18 04/21/18 Rx Escitalopram [Lexapro] 10 mg PO DAILY 04/21/18 04/21/18 History Allergies Allergy/AdvReac Type Severity Reaction Status Date / Time amoxicillin [From Augmentin] Allergy Severe Difficulty Verified 04/21/18 20:34 Breathing clavulanic acid Allergy Severe Difficulty Verified 04/21/18 20:34 [From Augmentin] Breathing ondansetron Allergy Severe Verified 04/21/18 20:34 REPORTS ZOFRAN WAS BEING ADMINISTERED AND HE SEIZED Exam Vital Signs: Temperature 98.0 F 04/21/18 20:22 Pulse Rate 97 04/21/18 23:07 Respiratory Rate 18 04/21/18 20:22 Blood Pressure 175/112 H 04/21/18 23:06 Pulse Oximetry 100 04/21/18 20:22 Height/Weight/BMI: Height 1.75 m Weight 70.6 kg Comments: appears in no distress does sounds anxious/depressed but denies suicidality lungs clear CV reg s m abd soft benign ostomy in place Results - Labs CBC & Chem 7: 04/22/18 03:54 04/22/18 03:58 Assessment and Plan Assessment and Plan: 1. hyponatremia d/t dehydration/electrolyte loss from ostomy and non compliance w NaCl replacement 2. Alcohol abuse 3. Severe generalized anxiety d/o with issues of /divorce of impending 4. Anemia presume d/t chonric anemia, ?gi blood loss? 5. Crohn's dz 6. Immunosupporessed on mAB and prednisone IV NS repeat labs in AM alcohol w/d plans benzos PRN and for anxiety needs close follow up w psych needs to take meds - Time spent with patient Time with patient PN: 50 minutes - Physician Narrative Physician: other (Shant Paulino MD) Narrative: Date: 04/22/18 Time: 814 Dr. Escobar's note reviewed. Mr. Guerra is a pleasant 52-year-old male patient, interviewed and examined at bedside. CC: Anxiety, concern for low sodium HPI: Patient reports 23 day history of binge drinking alcohol, patient was consuming one bottle of red wine every day for the past 2 days prior to admission. Patient reports significant emotional stressors over the past month, he has been consuming 68 beers on a daily basis in the meantime. Patient reports 3 prior hospitalizations within the past year for alcohol-related issues and further 2 episodes of hospitalization for hyponatremia. Patient has Crohn's disease, status post colostomy placement 11 years ago and reports having loose, watery diarrhea from colostomy causing low sodium problems. Patient on oral sodium chloride supplementation however verbalizes that he has not been taking medication as recommended. Patient also states that his now 14- year-old son was diagnosed with type 1 diabetes mellitus 9 months ago and patient concerned that his son has been noncompliant with insulin medications. For the past month, patient also reports having marital problems and is concerned about his relationship with his . Last night, patient reports he had a severe anxiety attack which led him to drink more alcohol following which he presented to emergency room. PH: History of Crohn's disease status post colostomy placement 11 years ago, seizure disorder, episodes of hypokalemia, hyponatremia. Hypertension, dyslipidemia. Chronic anemia SH: No reported history of tobacco or recreational drug use. Patient reports episodes of binge drinking alcohol with intermittent 67 month period of sobriety FH: Patient's son has a history of type 1 diabetes mellitus. Patient's grandfather had a history of coronary artery disease later in his life. Patient' s mother had a history of breast cancer. ROS: 10 point review as per Dr. Escobar EXAM: General-alert, awake, oriented 3. Not in acute distress. HEENT-PERRL, EOMI without nystagmus, conjunctiva clear, sclera anicteric, conjugate gaze, facial structures symmetric, oropharynx clear, neck supple and without adenopathy Lungs-clear to auscultation bilaterally. No wheezing, no rhonchi, no crepitations. [id number] heard. No murmurs, no S3/S4 gallop. Regular rate and rhythm. Abd-soft, not distended, nontender. Bowel sounds appreciable in all quadrants. Patient has left-sided colostomy bag in place, no surrounding erythema or tenderness to touch. Ext-no pedal edema bilateral lower extremities. Calves nontender bilaterally on palpation. Skin-no erythema, no induration, no rash. Neuro-strength preserved, sensations intact. No discernible focal neurological deficit. Psych-patient appears slightly anxious although answers questions appropriately. No reported suicidal thought or homicidal ideation. DATA: Serum sodium 124 on admission, improved to 130 this morning. Patient had leukocytosis with WBC count 13,300 on admission, WBC count 9000 this morning. Hemoglobin 8.6 when compared to 9.6 last night. A/P: Anxiety with panic attack Alcohol intoxication Hyponatremia Crohn's disease Seizure disorder Hypertension Dyslipidemia Chronic anemia Plan: Patient will be on alcohol withdrawal prophylaxis including seizure precautions Valium 5 mg by mouth every 8 hours IV Ativan 2 mg every 4 hours as needed for anxiety or restlessness Will replace oral thiamine, multivitamin, folic acid Serum sodium improved to 130, will restart home medication oral sodium chloride 1 g 3 times a day. Hemoglobin 8.6, review of records over the past year shows patient's hemoglobin ranging from 8.89.1. Continue home medication prednisone 10 mg daily Hospital Course Summary Disclaimer: The visit summary below is not to be considered part of the above Progress Note.
[2018-04-22] MEDS ORDERED: ACETAMINOPHEN 325 MG TABLET PO PRN (00:10)
[2018-04-22] MEDS ORDERED: DIAZEPAM 5 MG TABLET PO PRN (00:10)
[2018-04-22 00:14] VITALS: BMI 22.4
[2018-04-22] MEDS: NS 1,000 ML IV SCH ×2 (01:14→11:38)
[2018-04-22 08:19] VITALS: O2SAT 98
[2018-04-22] MEDS ORDERED: FOLIC ACID 1 MG TABLET PO SCH (09:00)
[2018-04-22] MEDS ORDERED: SODIUM CHLORIDE 1 GM TABLET PO SCH (15:00)
[2018-04-22 16:08] VITALS: BP 120/80; PULSE 76; RESP 12; TEMP 98.6
--- NOTE | 2018-04-22 18:04 | Discharge Summary ---
Discharge Information Date of admission: 04/21/18 23:22 Anticipated date of discharge: 04/22/18 Attending Physician: Shant Paulino MD Primary care physician: Han Knight MD - Discharge Diagnosis (1) Crohns disease Status: Chronic (2) Acute anxiety Status: Resolved (3) Acute alcohol intoxication Status: Resolved (4) Hyponatremia Status: Chronic (5) History of creation of ostomy Status: Chronic Panic attack, resolved Hypertension Dyslipidemia Chronic anemia - Laboratory Labs: 04/22/18 03:54 04/22/18 15:12 History of Present Illness HPI: 52-year-old white male presented to the emergency room thinking that his sodium was low. He's been on alcohol binge for 2-3 days because of anxiety, sounds like it's mostly related to his stressors in life including his estrangement from his she had moved to 9 months ago, he also has a 14-year-old with diabetes type 1 who he says is not very serious about treating it well. He is drinking about a bottle of wine in the past 2 days each. He says even on days besides those 2 days he'll have 6-8 beers a day. The says he drinks primarily treating his severe anxiety. About one week ago he saw psychiatrist was prescribed Lexapro. He has not been taking his sodium supplements for the past 3 days. He has an ostomy as a result of complication from a colonoscopy where he had a perforated colon and had to have a partial colectomy. Its common for him to have multiple liquid stools and his ostomy daily. He denies suicidality. He says he is probably an alcoholic. He says he feels humiliated/ashamed of self right now. Asks me a couple of times "am I gonna be ok? With looking at my labs, am I gonna be ok?" Objective Vital signs: Temperature 98.6 F 04/22/18 16:00 Pulse Rate 76 04/22/18 16:00 Respiratory Rate 12 04/22/18 16:00 Blood Pressure 120/80 04/22/18 16:00 Pulse Oximetry 98 04/22/18 16:00 Height/Weight/BMI: Height 1.75 m Weight 67.6 kg Body Mass Index 22.4 - Additional findings Additional findings: General: Alert, awake, oriented 3. Not in acute distress. Head: Pupils equal, round, reactive to light and accommodation. Extraocular movements intact. Neck: No elevation in JVP. No pharyngeal erythema noted. Chest: The patient does not use accessory muscles for breathing. Lungs: Breath sounds audible on auscultation bilateral lung mckeon. No wheezing , no rhonchi, no crepitations, no crackles. No pleural rub. CVS: S1, S2 heard on auscultation. Normal rate and rhythm. No murmur, no S3/S4 gallops. Abdomen: Soft, nontender, no distention. Bowel sounds appreciated on auscultation. : No flank tenderness, no suprapubic distention or tenderness. Skin: No rashes, no induration, no erythema. Capillary refill less than 4 seconds. Extremities: No evidence of pedal edema bilateral lower extremities. No calf tenderness bilaterally. Palpable dorsalis pedis and posterior tibial pulses bilateral lower extremities. COMMERCIAL GLAZIER: Strength 5/5 bilateral upper and lower extremities. Sensations intact. No slurred speech, no facial droop. No discernible focal neurological deficits. Hospital Course This is a general summary of the patient's hospital course. For more details refer to the complete medical record. Hospital course: Patient admitted with panic attack underlying emotional stressors and binge drinking alcohol episode. Patient received IV Ativan 4 mg in the emergency room. Patient evaluated earlier this morning following admission, symptoms of anxiety had improved. Patient did not report any chronic or daily alcohol use. No tremors, no shaking, palpitations, no recurrent anxiety, no restlessness noted during brief hospital stay. Serum sodium 124 on admission last night, improved to 132 this evening. Patient verbalized wishes to be discharged home. Time spent with patient: discharge greater than 30 minutes Resuscitation Status: Full Code Discharge Plan - Discharge Disposition Discharge Date: 04/22/18 Disposition: 01 Discharged Home, Self-Care *Condition: Improved Reason For Visit (Visit label in EMR): anxiety/hyponatremia - Discharge Medications *Discharge Medications: Continue Ustekinumab [Stelara] 90 mg SQ Q56D Atorvastatin Calcium 20 mg PO HS Sodium Chloride Tab [Salt Tablet] 1 gm PO TID #90 tab Cyanocobalamin (Vitamin B-12) [Vitamin B-12] 1 tab PO DAILY Magnesium Oxide [Magnesium] 500 mg PO DAILY Potassium Chloride 10 meq PO DAILY Zolpidem [Ambien] 10 mg PO HS predniSONE [Prednisone] 10 mg PO DAILY #30 tab Escitalopram [Lexapro] 10 mg PO DAILY - Discharge Packet/Instructions *Diet: Follow diet for Crohn's disease as recommended by [email or web address] analyst *Activity: As tolerated *Pain Management/Treatment: As prescribed by PCP *Wound Care: Colostomy care and treatment as recommended by [email or web address] analyst, PCP Additional Instructions: Patient advised to keep follow-up appointment with psychiatrist in 1 week. Patient advised to establish and follow up with primary care provider of patient choice. Patient also advised to follow up with [email or web address] analyst with regards to Crohn's disease. *Expected Signs/Symptoms: Continued improvement *Notify Physician if: Recurrent panic attack, chest pain, palpitations, shortness of breath, temperature greater than 101F, intractable abdominal pain , vomiting, or any other concerning findings *During Business Hours Contact: Primary care provider office *After Business Hours Contact: Call [facility] at [phone] and ask that the on-call physician be paged *Pending Lab/Results: No Pending Lab - Referrals/Follow Up - Patient Handouts - Dismissal Complete Discharge Instructions are:: Complete Physician Narrative - Narrative Attestation Narrative: Date: 04/22/18 Time: 1800
[2018-04-22] MEDS ORDERED: ZOLPIDEM 10 MG TABLET PO SCH (21:00)
== END 2018-04-22 18:30 | disposition home or self-care (01) ==
LOC: ED 19:54 → EDHOLD 19:54 → SUATTDRO 23:22 → MED 04-22
PROVIDERS: ADMIT Pediatrics; ATTEND Internal Medicine